=== PATIENT | male | born 1955 | race Caucasian/White ===

== ENCOUNTER → 2017-01-22 | Outpatient (CLI) | payer OTHER ==
[~2017-01-22] MED LIST: ALBU83IN INH; AUGM875T28 PO; CIAL5TAB PO; NUTRIFERON PO; OMEP40CA2 PO; PROZ40CA PO; SAW450CA2 PO; SPIR1CAP INH; TESS100C PO; VITA100067 PO; tumeric PO; uroxatral PO
--- NOTE | 2017-01-22 13:13 | REP ---
Clinical: COPD with acute exacerbation. Technique: PA and lateral. Comparison: 07/14/2014. Findings: Mediastinum and cardiac silhouette are within normal limits. Lung gonzalez demonstrate chronic changes related to COPD along with superimposed bibasilar atelectasis and small pleural reactions (left greater than right). Impression: COPD with superimposed acute bibasilar atelectasis and small pleural reactions (left greater than right). Signed by Ghassan Monroy MD 01/22/2017 01:05 P
== END ==
LOC: M WUC 12:47
PROVIDERS: ATTEND Physician Assistant
DX: J44.1 Chronic obstructive pulmonary disease with (acute) exacerbation (principal)

== ENCOUNTER → 2017-02-20 | Outpatient (REF) | payer OTHER | LOC: M LABDRAWC 12:08 | PROVIDERS: ATTEND Urology | DX: R97.20 Elevated prostate specific antigen [PSA] (principal) ==

== ENCOUNTER → 2017-07-11 | Outpatient (CLI) | payer OTHER | LOC: M RAD 12:52 | DX: J44.9 Chronic obstructive pulmonary disease, unspecified (principal) ==

== ENCOUNTER 2017-08-29 15:02 | Emergency (ER) | payer OTHER ==
[2017-08-29 16:03] LABS: BASO # 0.1 10^3/uL (0.0-0.2); BASO % 0.8 % (0.0-1.0); EOS # 0.2 10^3/uL (0.0-0.50); EOS % 2.3 % (0.0-3.0); HEMATOCRIT 43.7 % (42.0-52.0); HEMOGLOBIN 15.1 g/dl (13.5-17.5); IMMATURE GRANULOCYTE % 0.3 % (0-3.0); LYMPH # 1.6 10^3/uL (1.5-4.5); LYMPH % 21.9 % (24.0-44.0); MEAN CORPUSCULAR HEMOGLOBIN 30.2 pg (27.0-33.0); MEAN CORPUSCULAR HGB CONC 34.6 g/dl (32.0-36.5); MEAN CORPUSCULAR VOLUME 87.4 fl (80.0-96.0); MONO # 0.6 10^3/uL (0.0-0.8); MONO % 8.3 % (0.0-5.0); NEUTROPHILS # 4.9 10^3/uL (1.8-7.7); NEUTROPHILS % 66.4 % (36.0-66.0); PLATELET COUNT, AUTOMATED 218 10^3/uL (150-450); RED CELL DISTRIBUTION WIDTH 12.7 % (11.5-14.5); WHITE BLOOD COUNT 7.3 10^3/uL (4.0-10.0)
[2017-08-29 16:17] LABS: ALKALINE PHOSPHATASE 74 U/L (45-117); ALT/SGPT 26 U/L (12-78); ANION GAP 9 MEQ/L (8-16); AST/SGOT 26 U/L (7-37); BLOOD UREA NITROGEN 17 MG/DL (7-18); CALCIUM LEVEL 8.4 MG/DL (8.8-10.2); CARBON DIOXIDE LEVEL 25 MEQ/L (21-32); CHLORIDE LEVEL 109 MEQ/L (98-107); CPK CREATINE PHOSPHOKINASE 176 U/L (39-308); CREATININE FOR GFR 1.16 MG/DL (0.70-1.30); GLOMERULAR FILTRATION RATE > 60.0 (>49); GLUCOSE, FASTING 90 MG/DL (70-100); SODIUM LEVEL 143 MEQ/L (136-145)
[2017-08-29 16:18] LABS: ALBUMIN 3.4 GM/DL (3.2-5.2); BILIRUBIN,DIRECT < 0.1 MG/DL (0.0-0.2); BILIRUBIN,TOTAL 0.3 MG/DL (0.2-1.0); TOTAL PROTEIN 6.5 GM/DL (6.4-8.2); TROPONIN I < 0.02 NG/ML (< 0.10)
[2017-08-29 16:23] LABS: CK-MB VALUE MASS 2.4 NG/ML (<3.6); MB/CK RELATIVE INDEX 1.36 (< OR =4)
[2017-08-29] MEDS: VERAPAMIL HCL 5 MG/2 ML VIAL IV (16:47)
[2017-08-29] MEDS: APIXABAN 5 MG TAB (ELIQUIS) PO (19:51)
== END 2017-08-29 20:00 | disposition home or self-care (01) ==
LOC: M ED 15:02
DX: I48.92 Unspecified atrial flutter (principal); R94.31 Abnormal electrocardiogram [ECG] [EKG]; J44.9 Chronic obstructive pulmonary disease, unspecified; N40.0 Benign prostatic hyperplasia without lower urinary tract symptoms; Z98.890 Other specified postprocedural states; Z87.891 Personal history of nicotine dependence
CPT/HCPCS: 71045

== ENCOUNTER → 2018-02-21 | Outpatient (REF) | payer OTHER | LOC: M LABDRAWC 17:42 | DX: R97.20 Elevated prostate specific antigen [PSA] (principal) | CPT/HCPCS: 84153 ==

== ENCOUNTER → 2018-03-19 | Outpatient (REF) | payer OTHER ==
[2018-03-22 00:07] LABS: PSA % FREE 13.6 % (.); PSA TOTAL 6.6 ng/mL (0.0-4.0)
== END ==
LOC: M LABDRAWC 16:44
DX: Z12.5 Encounter for screening for malignant neoplasm of prostate (principal)

== ENCOUNTER 2018-06-03 10:35 | Day surgery (SDC) | payer OTHER ==
[~2018-06-03] VITALS: Ht 177.8 cm; Wt 86.2 kg
[~2018-06-03 10:35] MED LIST changes: +ASHW500C PO; +COLA100C5 PO; +DILT120C77 PO; +DILT60TA PO; +ELIQ5TAB PO; +FEXO180T58 PO; +FINA5TAB2 PO; +NASA1SPR; +OMEGCAP9 PO; +PROAAER10 INH; +SYMB16INH INH; +ZOLO50TA PO
[2018-06-03] MEDS ORDERED: NS 1,000 ML IV ONE (11:00)
[2018-06-03] MEDS ORDERED: PROPOFOL 200 MG/20 ML VIAL As Ordered ONE ×2 (12:11→13:16)
[2018-06-03] MEDS ORDERED: LIDOCAINE 2% INJ 100 MG/5 ML SDV (FOR ANES.) As Ordered ONE (12:12)
[2018-06-03] MEDS ORDERED: fentaNYL 100 MCG/2 ML INJECTION (J3010) As Ordered ONE (12:18)
--- NOTE | 2018-06-03 13:11 | ROOR ---
Patient Name: Ishan Deutsch Procedure Date: 06/03/2018 12:56 PM Date of : 1955 Age: 63 Room: [facility] Gender: Male Note Status: Finalized Procedure: Upper Endoscopy + Biopsies Indications: Heartburn, Exclusion of Lyman's esophagus Providers: Davis Cortez MD Referring MD: Lynda Okeefe DO Requesting Provider: Medicines: Monitored Anesthesia Care Complications: No immediate complications. Procedure: Pre-Anesthesia Assessment: - The heart rate, respiratory rate, oxygen saturations, blood pressure, adequacy of pulmonary ventilation, and response to care were monitored throughout the procedure. The Endoscope was introduced through the mouth, and advanced to the second part of duodenum. The upper GI endoscopy was accomplished without difficulty. The patient tolerated the procedure well. Findings: The Z-line was irregular and was found 40 cm from the incisors. Multiple biopsies were obtained with cold forceps for evaluation to rule out Lyman's Esophagus randomly at the gastroesophageal junction. A small hiatal hernia was present. Localized mild inflammation characterized by congestion (edema), erosions and erythema was found in the gastric antrum. Biopsies were taken with a cold forceps for Helicobacter pylori testing. The exam of the duodenum was otherwise normal. Impression: - Z-line irregular, 40 cm from the incisors. - Small hiatal hernia. - Mucosal changes suspicious for gastritis. Biopsied. - Multiple biopsies were obtained at the gastroesophageal junction. - The examination was otherwise normal. Recommendation: - Patient has a contact number available for emergencies. The signs and symptoms of potential delayed complications were discussed with the patient. Return to normal activities tomorrow. Written discharge instructions were provided to the patient. - High fiber diet. - Discharge patient to home. - Continue present medications. - Await pathology results. - Telephone GI clinic for pathology results in 1 week. - Return to referring physician. - The findings and recommendations were discussed with the patient's family. Davis Cortez MD Davis Crotez MD 06/03/2018 1:11:10 PM This report has been signed electronically. Number of Addenda: 0 Note Initiated On: 06/03/2018 12:56 PM Estimated Blood Loss: Estimated blood loss: none.
--- NOTE | 2018-06-03 13:46 | ROOR ---
Patient Name: Ishan Deutsch Procedure Date: 06/03/2018 12:57 PM Date of : 1955 Age: 63 Room: [facility] Gender: Male Note Status: Finalized Procedure: Total Colonoscopy to Cecum + Cold Snare Polypectomy + Hemoclips Indications: High risk colon cancer surveillance: Personal history of colonic polyps, High risk colon cancer surveillance: Personal history of adenoma with villous component, Last colonoscopy: 2015 Providers: Davis Cortez MD Referring MD: Lynda Okeefe DO Requesting Provider: Medicines: Monitored Anesthesia Care Complications: No immediate complications. Procedure: Pre-Anesthesia Assessment: - The heart rate, respiratory rate, oxygen saturations, blood pressure, adequacy of pulmonary ventilation, and response to care were monitored throughout the procedure. The Colonoscope was introduced through the anus and advanced to the cecum, identified by appendiceal orifice and ileocecal valve. The colonoscopy was performed without difficulty. The patient tolerated the procedure well. The quality of the bowel preparation was excellent. Findings: The perianal and digital rectal examinations were normal. Non-bleeding external internal hemorrhoids were found during retroflexion. The hemorrhoids were small and Grade I (internal hemorrhoids that do not prolapse). A small polyp was found in the transverse colon. The polyp was sessile. The polyp was removed with a cold snare. Resection and retrieval were complete. A large polyp was found in the mid ascending colon. The polyp was sessile. The polyp was removed with a cold snare. Resection and retrieval were complete. To prevent bleeding after the polypectomy, two hemostatic clips were successfully placed (MR conditional). There was no bleeding at the end of the procedure. A large polyp was found in the cecum. The polyp was sessile. The polyp was removed with a cold snare. Resection and retrieval were complete. To prevent bleeding after the polypectomy, three hemostatic clips were successfully placed (MR conditional). There was no bleeding at the end of the procedure. The exam was otherwise without abnormality on direct and retroflexion views. Impression: - Non-bleeding external internal hemorrhoids. - One small polyp in the transverse colon, removed with a cold snare. Resected and retrieved. - One large polyp in the mid ascending colon, removed with a cold snare. Resected and retrieved. Clips (MR conditional) were placed. - One large polyp in the cecum, removed with a cold snare. Resected and retrieved. Clips (MR conditional) were placed. - The examination was otherwise normal on direct and retroflexion views. - The exam was otherwise normal to the cecum. Recommendation: - Patient has a contact number available for emergencies. The signs and symptoms of potential delayed complications were discussed with the patient. Return to normal activities tomorrow. Written discharge instructions were provided to the patient. - High fiber diet. - Discharge patient to home. - Continue present medications. - Resume Eliquis (apixaban) at prior dose tomorrow. - Await pathology results. - Telephone GI clinic for pathology results in 1 week. - Repeat colonoscopy for surveillance based on pathology results. - Return to referring physician. - Check Portal Online for Path Results.([email or web address]) - The findings and recommendations were discussed with the patient's family. Davis Cortez MD Davis Cortez MD 06/03/2018 1:46:42 PM This report has been signed electronically. Number of Addenda: 0 Note Initiated On: 06/03/2018 12:57 PM Estimated Blood Loss: Estimated blood loss: none.
[2018-06-03 14:05] VITALS: BP 182/83
== END 2018-06-03 14:16 | disposition home or self-care (01) ==
LOC: M OPP 10:35
PROVIDERS: ATTEND Internal Medicine Gastroenterology
DX: Z12.11 Encounter for screening for malignant neoplasm of colon (principal); Z86.010 Personal history of colon polyps; K64.0 First degree hemorrhoids; K64.4 Residual hemorrhoidal skin tags; D12.3 Benign neoplasm of transverse colon; D12.2 Benign neoplasm of ascending colon; D12.0 Benign neoplasm of cecum; K22.8 Other specified diseases of esophagus; K44.9 Diaphragmatic hernia without obstruction or gangrene; K31.89 Other diseases of stomach and duodenum; R12 Heartburn; I51.9 Heart disease, unspecified; J44.9 Chronic obstructive pulmonary disease, unspecified; Z79.899 Other long term (current) drug therapy; Z87.891 Personal history of nicotine dependence
CPT/HCPCS: 43239; 45385; 88305; J3010

== ENCOUNTER → 2018-09-18 | Outpatient (REF) | payer OTHER | LOC: M LABDRAWC 16:24 | PROVIDERS: ATTEND Urology | DX: R97.20 Elevated prostate specific antigen [PSA] (principal) ==

== ENCOUNTER → 2018-11-08 | Outpatient (REF) | payer OTHER | LOC: M LAB REF 16:49 | PROVIDERS: ATTEND Internal Medicine | DX: J44.9 Chronic obstructive pulmonary disease, unspecified (principal) ==

== ENCOUNTER → 2019-03-03 | Outpatient (CLI) | payer OTHER ==
[~2019-03-03] MED LIST changes: -OMEP40CA2 PO; +OMEP40CA97 PO
--- NOTE | 2019-03-03 20:10 | REP ---
Clinical: Lung screening. History smoking. Comparison: 07/11/2017 Technique: Axial low-dose noncontrast images from the thoracic inlet to the upper abdomen using lung screening technique. Findings: The lung gonzalez demonstrate mild scattered chronic-appearing fibroatelectatic changes. No consolidation, or mass lesion is appreciated. A 9 mm nodule at the right lung base (image 80) is identified but appears relatively similar/stable compared to 2015. No pleural effusion/reaction or pneumothorax. Tracheobronchial tree is patent. Mediastinum demonstrates mild atherosclerotic changes of the coronary arteries without cardiomegaly. Impression: Lung-RADS category II. 9 mm nodule in the deep right lung base essentially inseparable from the diaphragm is likely stable as compared to 2015. Consider short-term 3-month follow-up to confirm chronicity and stability. Electronically Signed by Ghassan Monroy MD 03/03/2019 08:02 P
== END ==
LOC: M RAD 12:55
PROVIDERS: ATTEND Internal Medicine
DX: R91.1 Solitary pulmonary nodule (principal); F17.221 Nicotine dependence, chewing tobacco, in remission

== ENCOUNTER → 2019-03-24 | Outpatient (REF) | payer OTHER | LOC: M LAB REF 18:51 | PROVIDERS: ATTEND Urology | DX: R97.20 Elevated prostate specific antigen [PSA] (principal) ==

== ENCOUNTER → 2019-05-08 | Outpatient (CLI) | payer OTHER ==
--- NOTE | 2019-05-08 11:03 | REP ---
Clinical: COPD . Comparison: 11/08/2018 . Technique: PA and lateral. Findings: The mediastinum and cardiac silhouette are normal. The lung gonzalez demonstrate chronic stable changes without acute consolidation, effusion, or pneumothorax. The skeletal structures are intact and normal. Impression: 1. No acute cardiopulmonary process. Electronically Signed by Ghassan Monroy MD 05/08/2019 10:56 A
== END ==
LOC: M WUC 10:29
PROVIDERS: ATTEND Nurse Practitioner Family
DX: J44.1 Chronic obstructive pulmonary disease with (acute) exacerbation (principal)

== ENCOUNTER → 2019-05-13 | Outpatient (CLI) | payer OTHER ==
--- NOTE | 2019-05-13 12:40 | REP ---
Clinical: Cough and fever. Technique: PA and lateral. Comparison: 05/08/2019. Findings: Mediastinum and cardiac silhouette are within normal limits and stable. Lung gonzalez demonstrate chronic interstitial changes and emphysematous disease. Trace left basilar atelectasis. No focal consolidation. No effusion. No pneumothorax. Skeletal structures demonstrate osteopenia and degenerative changes. Impression: Chronic stable changes. Subtle left basilar atelectasis cannot be excluded. Electronically Signed by Ghassan Monroy MD 05/13/2019 12:31 P
== END ==
LOC: M WUC 11:52
PROVIDERS: ATTEND Internal Medicine
DX: J18.9 Pneumonia, unspecified organism (principal)

== ENCOUNTER → 2019-06-27 | Outpatient (CLI) | payer OTHER ==
--- NOTE | 2019-06-27 13:26 | REP ---
Clinical: Lung screening. History smoking. Solitary pulmonary nodule. Comparison: 03/03/2019 Technique: Axial low-dose noncontrast images from the thoracic inlet to the upper abdomen using lung screening technique. Findings: The lung gonzalez are well-aerated. Emphysematous changes and scattered scarring remain relatively stable through 2017 and 2014. 9 mm pulmonary nodule in the right lower lobe base essentially inseparable from the diaphragmatic surface remains stable and requires no further investigation. No consolidation, significant nodule or mass lesion is appreciated. No pleural effusion/reaction or pneumothorax. Tracheobronchial tree is patent. Mediastinum demonstrates mild atherosclerotic changes of the coronary arteries without cardiomegaly. Impression: 1. Lung-RADS category II. Findings are stable when compared through 07/03/2017 and 08/12/2014. 2. Management for high-risk patient is include annual low-dose surveillance. Electronically Signed by Ghassan Monroy MD 06/27/2019 01:17 P
== END ==
LOC: M RAD 13:04
PROVIDERS: ATTEND Internal Medicine
DX: R91.1 Solitary pulmonary nodule (principal)

== ENCOUNTER → 2019-10-22 | Outpatient (REF) | payer OTHER | LOC: M LABDRAWC 15:47 | PROVIDERS: ATTEND Urology | DX: R97.20 Elevated prostate specific antigen [PSA] (principal) ==

== ENCOUNTER → 2020-03-11 | Outpatient (REF) | payer OTHER ==
[2020-03-11 16:11] LABS: BASO % 0.2 % (0.0-1.0); HEMATOCRIT 48.1 % (42.0-52.0); HEMOGLOBIN 16.1 g/dl (13.5-17.5); LYMPH # 2.3 10^3/uL (1.5-5.0); MEAN CORPUSCULAR HEMOGLOBIN 32.9 pg (27.0-33.0); MEAN CORPUSCULAR HGB CONC 33.5 g/dl (32.0-36.5); MEAN CORPUSCULAR VOLUME 98.2 fl (80.0-96.0); MONO # 0.9 10^3/uL (0.0-0.8); MONO % 8.5 % (0.0-5.0); NEUTROPHILS # 6.9 10^3/uL (1.5-8.5); PLATELET COUNT, AUTOMATED 227 10^3/uL (150-450); WHITE BLOOD COUNT 10.2 10^3/uL (4.0-10.0)
== END ==
LOC: M LABDRAWC 15:39
PROVIDERS: ATTEND Internal Medicine Pulmonary Disease
DX: J45.51 Severe persistent asthma with (acute) exacerbation (principal)

== ENCOUNTER → 2020-03-19 | Outpatient (REF) | payer OTHER ==
[2020-03-19 17:38] LABS: ALBUMIN 3.3 GM/DL (3.2-5.2); BILIRUBIN,TOTAL 0.5 MG/DL (0.2-1.0); CALCIUM LEVEL 9.1 MG/DL (8.8-10.2); CHOLESTEROL RISK RATIO 3.343 (<5); CREATININE FOR GFR 1.36 MG/DL (0.70-1.30); GLOMERULAR FILTRATION RATE 56.3 (>49); POTASSIUM SERUM 4.3 MEQ/L (3.5-5.1); TOTAL PROTEIN 6.3 GM/DL (6.4-8.2)
== END ==
LOC: M LABDRAWC 16:04
PROVIDERS: ATTEND Physician Assistant
DX: I48.92 Unspecified atrial flutter (principal)

== ENCOUNTER → 2020-10-25 | Outpatient (CLI) | payer OTHER ==
--- NOTE | 2020-10-26 08:52 | REP ---
INDICATION: F17.211 NICOTINE DEPEND COMPARISON: 06/27/2019, 03/03/2019 TECHNIQUE: Axial noncontrast images from the thoracic inlet to the upper abdomen using low-dose lung screening technique (LDCT). FINDINGS: Lung gonzalez are well aerated and demonstrate COPD/emphysematous changes with minimal primarily infrahilar bronchiectasis and mild bibasilar fibroatelectatic changes. No acute consolidation, significant nodule, or mass. No pleural effusion. No pneumothorax. Tracheobronchial tree is patent. No obvious adenopathy. IMPRESSION: COPD/emphysematous changes and chronic stable fibroatelectatic changes Lung-RADS category 1. Management recommendations include annual low-dose CT surveillance. <Electronically signed by Ghassan Monroy > 10/26/20 [id number]
== END ==
LOC: M RAD 13:22
PROVIDERS: ATTEND Internal Medicine
DX: F17.211 Nicotine dependence, cigarettes, in remission (principal)

== ENCOUNTER 2020-12-31 18:42 | Inpatient (IN) | payer OTHER ==
[~2020-12-31] VITALS: Ht 180.3 cm; Wt 93.8 kg
[~2020-12-31 18:42] MED LIST changes: +OMEP40CA4 PO; -OMEP40CA97 PO
[2020-12-31] MEDS ORDERED: MORPHINE 2 MG/ML 1ML VIAL (J2270) IV ONE ×2 (20:00→21:20)
[2020-12-31 20:29] LABS: BASO # 0.1 10^3/uL (0.0-0.2); BASO % 0.5 % (0.0-1.0); EOS % 0.4 % (0.0-3.0); HEMATOCRIT 44.6 % (42.0-52.0); HEMOGLOBIN 15.3 g/dl (13.5-17.5); LYMPH # 1.1 10^3/uL (1.5-5.0); LYMPH % 11.4 % (24.0-44.0); MEAN CORPUSCULAR HEMOGLOBIN 33.8 pg (27.0-33.0); MEAN CORPUSCULAR HGB CONC 34.3 g/dl (32.0-36.5); MEAN CORPUSCULAR VOLUME 98.5 fl (80.0-96.0); MONO # 0.6 10^3/uL (0.0-0.8); MONO % 6.3 % (2.0-8.0); NEUTROPHILS # 7.8 10^3/uL (1.5-8.5); NEUTROPHILS % 81.1 % (36.0-66.0); PLATELET COUNT, AUTOMATED 218 10^3/uL (150-450); RED BLOOD COUNT 4.53 10^6/uL (4.30-6.10); WHITE BLOOD COUNT 9.7 10^3/uL (4.0-10.0)
[2020-12-31 20:39] LABS: INR 0.95; PROTHROMBIN TIME 13.1 SECONDS (12.7-14.5)
[2020-12-31 20:40] LABS: PARTIAL THROMBOPLASTIN TIME 25.2 SECONDS (25.9-37.0)
[2020-12-31 20:59] LABS: BLOOD UREA NITROGEN 7 MG/DL (7-18); CALCIUM LEVEL 8.3 MG/DL (8.8-10.2); CARBON DIOXIDE LEVEL 27 MEQ/L (21-32); CHLORIDE LEVEL 105 MEQ/L (98-107); CK-MB VALUE MASS < 1.0 NG/ML (<3.6); CPK CREATINE PHOSPHOKINASE 39 U/L (39-308); CREATININE FOR GFR 1.12 MG/DL (0.70-1.30); ETHYL ALCOHOL (ETHANOL) 0.059 % (0.000-0.010); GLOMERULAR FILTRATION RATE > 60.0 (>49); GLUCOSE, FASTING 124 MG/DL (70-100); MB/CK RELATIVE INDEX 2.56 (< OR =4); POTASSIUM SERUM 3.8 MEQ/L (3.5-5.1); SODIUM LEVEL 140 MEQ/L (136-145); TROPONIN I < 0.02 NG/ML (< 0.10)
[2020-12-31] MEDS: THIAMINE 100 MG TAB PO SCH (21:00)
--- NOTE | 2020-12-31 21:13 | REPVR ---
PROCEDURE INFORMATION: Exam: XR Right Femur Exam date and time: 12/31/2020 8:53 PM Age: 65 years old Clinical indication: Other: Fall; Additional info: Fall injury; Right hip/upper leg pain TECHNIQUE: Imaging protocol: XR Right femur. Views: 2 views. COMPARISON: No relevant prior studies available. FINDINGS: Bones/joints: Acute inter trochanteric fracture. Otherwise unremarkable. Soft tissues: Unremarkable. Vasculature: Atherosclerotic changes in the femoral artery. IMPRESSION: Acute inter trochanteric fracture. Electronically signed by: Derrek Quesada On 12/31/2020 21:12:51 PM
--- NOTE | 2020-12-31 21:14 | REPVR ---
PROCEDURE INFORMATION: Exam: XR Right Hip Exam date and time: 12/31/2020 8:53 PM Age: 65 years old Clinical indication: Other: Fall; Additional info: Fall injury; Right hip/upper leg pain TECHNIQUE: Imaging protocol: XR Right hip. Views: 2 or 3 views hip with pelvis when performed. COMPARISON: No relevant prior studies available. FINDINGS: Bones/joints: Acute inter trochanteric fracture on the right. Otherwise unremarkable. Soft tissues: Unremarkable. IMPRESSION: Acute inter trochanteric fracture on the right. Electronically signed by: Derrek Quesada On 12/31/2020 21:14:02 PM
--- NOTE | 2020-12-31 21:15 | REPVR ---
PROCEDURE INFORMATION: Exam: XR Chest Exam date and time: 12/31/2020 8:53 PM Age: 65 years old Clinical indication: Other: Fall; Additional info: Syncope/near-syncope TECHNIQUE: Imaging protocol: XR of the chest. Views: 1 view. COMPARISON: CR CHEST 2 VIEW 05/13/2019 12:28 PM FINDINGS: Lungs: Hyperlucency demonstrated in both lungs suggesting underlying emphysematous changes. No segmental or lobar infiltrates. Pleural spaces: Unremarkable. No pleural effusion. No pneumothorax. Heart/Mediastinum: Unremarkable. No cardiomegaly. Bones/joints: Unremarkable. IMPRESSION: No acute findings. Electronically signed by: Derrek Quesada On 12/31/2020 21:14:34 PM
[2020-12-31] MEDS ORDERED: ELIQ5TAB PO (22:19)
[2020-12-31] MEDS ORDERED: ASHW300C PO (22:19)
[2020-12-31] MEDS ORDERED: SERT25TA21 PO (22:19)
[2020-12-31] MEDS ORDERED: SAW1CAPS2 PO (22:19)
[2020-12-31] MEDS ORDERED: CALC1TAB91 PO (22:19)
[2020-12-31] MEDS ORDERED: LEVA0.636 NEB (22:24)
[2020-12-31] MEDS ORDERED: SPIR-10 PO (22:24)
[2020-12-31] MEDS ORDERED: FURO40TA2 PO (22:24)
[2020-12-31] MEDS ORDERED: APPL300T4 PO (22:24)
[2020-12-31] MEDS ORDERED: METO1TAB87 PO (22:24)
[2020-12-31] MEDS ORDERED: MONT10TA10 PO (22:24)
[2020-12-31] MEDS ORDERED: TREL1AER INH (22:24)
[2020-12-31] MEDS ORDERED: DOK100TA2 PO (22:24)
[2020-12-31] MEDS ORDERED: AZIT-12 PO (22:24)
[2020-12-31] MEDS ORDERED: LEVAINH INH (22:24)
[2020-12-31] MEDS ORDERED: ALFU10TA3 PO (22:24)
[2020-12-31] MEDS ORDERED: HOME MED LIST COMPLETE! XX SCH (22:30)
[2020-12-31] MEDS ORDERED: LORazepam 2 MG TAB PO PRN (22:40)
[2020-12-31] MEDS ORDERED: HYDROMORPHONE HCL 0.5 MG/ 0.5 ML SYRINGE (J1170 PER 1) IV PRN (22:40)
[2020-12-31] MEDS ORDERED: MAALOX 30 ML SUSP *UDC PO PRN (23:00)
[2020-12-31] MEDS ORDERED: MOM 30ML SUSPENSION UDC PO PRN (23:00)
[2020-12-31] MEDS ORDERED: ACETAMINOPHEN TAB 650MG DOSE (2X325MG) PO PRN (23:00)
[2020-12-31 23:01] LABS: RSV AMPLIFICATION NEGATIVE (NEGATIVE)
[2020-12-31 23:07] LABS: NT-PRO BNP 748 PG/ML (<125)
--- NOTE | 2020-12-31 23:32 | HPEPDOC ---
[facility] Medical History & Physical Date of Admission Dec 31, 2020 Date of Service: Dec 31, 2020 Primary Care Physician: RAQUEL SOLIS DO Attending Physician: MITESH MEDRANO MD History and Physical TIME OF SERVICE: 1150pm CHIEF COMPLAINT: hip pain HISTORY OF PRESENT ILLNESS: a 65 yr old M has been having dizzy spells off and on for a especially when he turns to the right. He denies having associated palpitations, blurry vision, chest pain, or dyspnea. Today he had another dizzy spell that resulted in falling onto his right hip; as a result of the fall he developed hip pain, came to the ER and was diagnosed w a right intertrochanteric fracture. REVIEW OF SYSTEMS: 10-point review of systems negative except as listed in HPI PAST MEDICAL/ SURGICAL HISTORY: Longstanding persistent A Fib, COPD, GERD, inguinal hernia repair, hemorrhoidectomy, resection of multiple colonic polyps SOCIAL HISTORY: he quit smoking and drinks 1.75 L of wine daily FAMILY HISTORY: CAD, DM & HTN ALLERGIES: Please see below. HOME MEDICATIONS: Please see below. PHYSICAL EXAMINATION: Vital Signs Date Time Temp Pulse Resp B/P (MAP) Pulse Ox O2 Delivery O2 Flow Rate FiO2 12/31/20 18:55 117/67 (84) 12/31/20 18:57 62 98 12/31/20 19:00 97.7 20 Nasal Cannula 2.0 GENERAL APPEARANCE: well-nourished and developed/ NAD HEENT: EOMI / MMM&P CARDIOVASCULAR: RRR/NMRG LUNGS: CTAB on RA ABDOMEN: contour obese/ soft & NT w palpation MUSCULOSKELETAL: NCAT NEUROLOGICAL: CN 2-12 grossly intact / speech not dysarthric PSYCHIATRIC: A&O / able to understand and follow simple commands LABORATORY DATA: IMAGING: Chest xray IMPRESSION: No acute findings. Femur xray IMPRESSION: Acute inter trochanteric fracture. Hip/Pelvis xray IMPRESSION: Acute inter trochanteric fracture on the right. MICROBIOLOGY: Respiratory panel is neg ASSESSMENT: is a 65 yr old w Longstanding persistent A Fib, COPD, BPH & GERD who is admitted for management of a right intertrochanteric fx. PLAN: 1 Right Inter-trochanteric fracture His RCRI score is 0, therefore he doesnt need additional testing prior to proceeding with surgery. Plan: admit to medical floor / IVF/ dilaudid/ hold Xarelto (because his CHADVASC Score is less than 5 there is no need to bridge with a heparin drip prior to surgery) / f/u w Dr. Menjivar for surgery on Sunday or Sunday 2 Osteoporosis By definition because he has a hip fracture he has osteoporosis. Plan: f/u Ca and Vitamin D / start calcium w vitamin D supplement / he can f/u with his PCP for DEXA Scan & BMP to determine CrCl prior to selecting medication for osteoporosis & to discuss non-pharmacological therapies for os teoporosis (ie resistance and core training, smoking cessation, alcohol moderation and fall prevention strategies) 3 Presyncope R/O CVA and aortic stenosis Plan: telemetry / f/u CT head, carotid US & Echo 4 Alcohol Abuse Plan: Ativan, thiamine, MVI & folic acid per CIID protocol 5 Longstanding persistent A Fib Plan: diltiazem & metoprolol 6 COPD Plan: chronic azithromycin, levalbuterol, montelukast 7 resistant HTN ? Plan: lasix, diltiazem & metoprolol, spironolactone 8 BPH Plan: tamsulosin, finasteride 9 GERD Plan: PPI 10 Class 1 obesity complicates care Plan: f/u A1C / the patient can f/u w his or her PCP for sleep apnea screening, diet clerk consult, to discuss staring Saxenda, which is indicated in patients with a BMI >27 with co-existing DM, HTN or dyslipidemia to help with weight control as an adjunct to exercise DVT px w Heparin which can be held at midnight prior to surgery (Janie Prediction Score to determine the in-patient risk of VTE & need for anticoagulation is 6. Individuals with a Janie Score <4 are low risk of VTE and thromboprophylaxis should be considered on a [id number] basis while individuals with a Janie score >4 are high risk for VTE and will likely benefit from thromboprophylaxis unless the patient has major contraindication such as major bleeding or thrombocytopenia). Dispo: home after at least 2 midnights stay Home Medications Scheduled Alfuzosin HCl (Alfuzosin HCl ER) 10 Mg Tab.er.24h, 10 MG PO DAILY Apixaban (Eliquis) 5 Mg Tablet, 5 MG PO BID Ashwagandha Root Extract (Ashwagandha Root Extract) 300 Mg Capsule, 300 MG PO DAILY Azithromycin (Azithromycin) 250 Mg Tablet, 250 MG PO DAILY Calcium Carbonate/Vitamin D3 (Calcium 500 mg-Vit D3 600 Unit) 1 Each Tablet, 1 EACH PO DAILY Cider Vinegar (Apple Cider Vinegar) 300 Mg Tablet, 300 MG PO DAILY Diltiazem HCl (Diltiazem 24Hr ER) 120 Mg Cap, 360 MG PO DAILY Docusate Sodium (Dok) 100 Mg Tablet, 100 MG PO DAILY Fexofenadine HCl (Fexofenadine HCl) 180 Mg Tab, 180 MG PO DAILY Finasteride (Finasteride) 5 Mg Tab, 5 MG PO DAILY Fluticasone/Umeclidin/Vilanter (Trelegy Ellipta 100-62.5-25) 1 Each Blst.w.dev, 1 PUFF INH QPM Furosemide (Furosemide) 40 Mg Tablet, 40 MG PO DAILY Levalbuterol HCl (Levalbuterol HCl) 0.63 Mg/3 Ml Vial.neb, 1 VIAL NEB QID Metoprolol Tartrate (Metoprolol Tartrate) 25 Mg Tablet, 25 MG PO DAILY Montelukast Sodium (Montelukast Sodium) 10 Mg Tablet, 10 MG PO QPM Omeprazole (Omeprazole) 40 Mg Cap, 40 MG PO DAILY Saw Cobalt Fruit/Zinc Picoli (Saw Cobalt 450 mg Capsule) 1 Each Capsule, 1 EACH PO DAILY Sertraline HCl (Sertraline HCl) 25 Mg Tablet, 25 MG PO DAILY takes with 50mg to equal 75mg Sertraline Hcl (Zoloft) 50 Mg Tab, 50 MG PO DAILY takes with 25mg to equal 75mg Spironolactone (Spironolactone) 25 Mg Tablet, 25 MG PO DAILY Tadalafil (Cialis) 5 Mg Tab, 5 MG PO DAILY Triamcinolone Acetonide (Nasacort) 55 Mcg/Act Spr, 2 SPRAYS NA QHS [tumeric] , 1 TAB PO DAILY Scheduled PRN Levalbuterol Hydrochloride (Xopenex Hfa) 15 Gm Hfa.aer.ad, 1 PUFF INH ASDIRECTED PRN for SHORTNESS OF BREATH Allergies Coded Allergies: No Known Allergies (Verified Allergy, Unknown, 12/31/20) A-FIB/CHADSVASC A-FIB History Current/History of A-Fib/PAF?: Yes Current PO Anticoag Therapy: No Treatment Treatment ordered: Holding Other Reason Anticoagulant not given: Recent/upcomin procedure MITESH MEDRANO MD Dec 31, 2020 23:32
[2020-12-31] MEDS: HYDROMORPHONE HCL 0.5 MG/ 0.5 ML SYRINGE (J1170 PER 1) IV PRN (23:33)
[2021-01-01] VITALS (7 sets, daily range): BP systolic 111–141; BP diastolic 73–95
--- NOTE | 2021-01-01 01:04 | REPVR ---
PROCEDURE INFORMATION: Exam: US Duplex Bilateral Extracranial Arteries Exam date and time: 01/01/2021 12:38 AM Age: 65 years old Clinical indication: Syncope and collapse; Additional info: Presyncope R/O CVA TECHNIQUE: Imaging protocol: Real-time Duplex ultrasound scan of the bilateral carotid and vertebral arteries combining bustillos scale, color Doppler and spectral waveform analysis. Bilateral exam. COMPARISON: LOW DOSE LUNG SCREENING CT 10/25/2020 1:42 PM FINDINGS: Right common carotid artery: Arrhythmia. Atherosclerotic disease. No occlusion or stenosis. Waveforms are normal. Right internal carotid artery: Arrhythmia. Atherosclerotic disease. No occlusion or stenosis. Waveforms are normal. Right ICA/CCA ratio: Within normal limits. Right external carotid artery: No stenosis in the origin. Right vertebral artery: Not visualized. Left common carotid artery: Arrhythmia. Atherosclerotic disease. No occlusion or stenosis. Waveforms are normal. Left internal carotid artery: Arrhythmia. Atherosclerotic disease. No occlusion or stenosis. Waveforms are normal. Left ICA/CCA ratio: Within normal limits. Left external carotid artery: No stenosis in the origin. Left vertebral artery: Not visualized. IMPRESSION: No carotid arterial stenosis. Arrhythmia. REFERENCES: SRU CRITERIA. The degree of internal carotid artery stenosis is based on criteria defined by the Society of Radiologists in Ultrasound (SRU). Normal is no stenosis. Mild is less than 50% stenosis. Moderate is 50-69% stenosis. Severe is greater than 69% stenosis to near occlusion. Near occlusion is a markedly narrowed lumen. Total occlusion is no detectable patent lumen. Electronically signed by: Joe Latif On 01/01/2021 01:03:25 AM
[2021-01-01] MEDS: MONTELUKAST 10 MG TAB PO SCH ×2 (01:08→21:19)
[2021-01-01] MEDS: LEVALBUTEROL 1.25 MG/0.5 ML CONCENTRATE NEB NEB SCH ×5 (02:54→19:08)
[2021-01-01] MEDS: HYDROMORPHONE HCL 0.5 MG/ 0.5 ML SYRINGE (J1170 PER 1) IV PRN ×2 (04:05→13:37)
[2021-01-01 04:42] LABS: HEMATOCRIT 44.7 % (42.0-52.0); HEMOGLOBIN 15.5 g/dl (13.5-17.5); MEAN CORPUSCULAR HGB CONC 34.7 g/dl (32.0-36.5); PLATELET COUNT, AUTOMATED 206 10^3/uL (150-450); RED BLOOD COUNT 4.56 10^6/uL (4.30-6.10); WHITE BLOOD COUNT 10.5 10^3/uL (4.0-10.0)
[2021-01-01 05:25] LABS: INR 0.94
[2021-01-01 05:26] LABS: BLOOD UREA NITROGEN 9 MG/DL (7-18); CALCIUM LEVEL 8.5 MG/DL (8.8-10.2); CARBON DIOXIDE LEVEL 30 MEQ/L (21-32); CHLORIDE LEVEL 106 MEQ/L (98-107); GLOMERULAR FILTRATION RATE > 60.0 (>49); GLUCOSE, FASTING 133 MG/DL (70-100); POTASSIUM SERUM 4.2 MEQ/L (3.5-5.1); SODIUM LEVEL 139 MEQ/L (136-145); TROPONIN I < 0.02 NG/ML (< 0.10)
[2021-01-01] MEDS ORDERED: HEPARIN SOD (PORCINE) 5000UNITS/ML 1ML VIAL/SYRINGE SQ SCH (06:00)
[2021-01-01] MEDS ORDERED: PERCOCET 5MG/325MG TAB PO ONE (08:00)
--- NOTE | 2021-01-01 08:00 | CR.PDOC ---
General Date of Consultation: Jan 01, 2021 Referring Provider: JEAN-CLAUDE EUCEDA MD Consultation 65-year-old male referred from the ER for right-sided hip pain after fall from a standing height. X-rays show right displaced intertrochanteric hip fracture. Unable to weight-bear HPI: Mr.Burrows sosa 65 yr old M has been having dizzy spells off and on for a especially when he turns to the right. He denies having associated palpitations, blurry vision, chest pain, or dyspnea. Today he had another dizzy spell that resulted in falling onto his right hip; as a result of the fall he developed hip pain, came to the ER and was diagnosed w a right inter trochanteric fracture. REVIEW OF SYSTEMS: 10-point review of systems negative except as listed in HPI PAST MEDICAL/ SURGICAL HISTORY: Longstanding persistent A Fib, COPD, GERD, inguinal hernia repair, hemorrhoidectomy, resection of multiple colonic polyps SOCIAL HISTORY: he quit smoking and drinks 1.75 L of wine daily FAMILY HISTORY: CAD, DM & HTN ALLERGIES: Please see below. HOME MEDICATIONS: Please see below. PAST SURGICAL HISTORY: 1. 2. FAMILY HISTORY: Family history of diabetes, coronary artery disease , hypertension Father: Mother: Siblings: Children: Hereditary Diseases: Unexpected deaths due to medical reasons: SOCIAL HISTORY: Marital status and/or living arrangements: Children: Employment: Tobacco use:[Patient states he quit smoking 20 years ago. Daily drinker of wine.] ETOH: Illicit drug use: IV drug use: Other relevant social factors: REVIEW OF SYSTEMS: CONSTITUTIONAL: . HEENT: . CARDIOVASCULAR: [Atrial fibrillation]. RESPIRATORY: . GENITOURINARY: . MUSCULOSKELETAL: . GASTROINTESTINAL: . SKIN: . NEUROLOGICAL: [Dizziness]. PSYCHIATRIC: . ENDOCRINE: . HEMATOLOGIC/LYMPHATIC: . ALLERGIC/IMMUNOLOGIC: . PHYSICAL EXAMINATION: VITAL SIGNS: Please see below. GENERAL APPEARANCE: [Alert and oriented. Mild distress. Laying supine in bed.]. HEENT: . RESPIRATORY: [No respiratory difficulty]. CARDIOVASCULAR: . ABDOMEN: [Patient mildly obese]. EXTREMITIES: [Right lower extremity shortened externally rotated. Pain with p ositive logroll test. Range of motion exam deferred due to hip pain. Right knee no effusion. No pain with palpation on the knee distally. No pain with palpation of the ankle distally. Maintained right ankle range of motion. Grossly vastly intact to light touch. Pulses distally.]. NEUROLOGICAL: . PSYCHIATRIC: . LABORATORY DATA: Please see below. ASSESSMENT/PLAN: 1. [Right displaced intertrochanteric fracture for surgical fixation with a cephalomedullary nail. I explained at length risk and benefits of surgery. Patient consented for right hip cephalomedullary nail. Patient consented for blood transfusion if needed.]. 2. [Patient awaiting medical work-up]. 3. We will book the OR pending medical clearance. 4. Patient will be kept n.p.o. for the upcoming surgery. Vital Signs/I&O Vital Signs Date Time Temp Pulse Resp B/P (MAP) Pulse Ox O2 Delivery O2 Flow Rate FiO2 01/01/21 07:25 98.0 114 18 138/95 (109) 98 Room Air 01/01/21 04:00 2.0 I&O- Last 24 Hours up to 6 AM 01/01/21 05:59 Intake Total 0 ml Balance 0 ml Laboratory Data Labs 24H Laboratory Tests 2 12/31/20 20:07: Immature Granulocyte % (Auto) 0.3, Neutrophils (%) (Auto) 81.1H, Lymphocytes (%) (Auto) 11.4L, Monocytes (%) (Auto) 6.3, Eosinophils (%) (Auto) 0.4, Basophils (%) (Auto) 0.5, Neutrophils # (Auto) 7.8, Lymphocytes # (Auto) 1.1L, Monocytes # (Auto) 0.6, Eosinophils # (Auto) 0.0, Basophils # (Auto) 0.1, Nucleated Red Blood Cells % (auto) 0.0, Prothrombin Time 13.1, Prothromb Time International Ratio 0.95, Activated Partial Thromboplast Time 25.2, Anion Gap 8, Glomerular Filtration Rate > 60.0, Calcium Level 8.3L, Total Creatine Kinase 39, Creatine Kinase MB < 1.0, Creatine Kinase MB Relative Index 2.56, Troponin I < 0.02, UB-Fqe-S-Type Natriuretic Peptide 748H, Thyroid Stimulating Hormone (TSH) 1.390, Ethyl Alcohol Level 0.059H 12/31/20 22:08: Coronavirus (COVID-19)(PCR) NEGATIVE, Influenza Type A (RT-PCR) NEGATIVE, I nfluenza Type B (RT-PCR) NEGATIVE, Respiratory Syncytial Virus (PCR) NEGATIVE 01/01/21 04:17: Nucleated Red Blood Cells % (auto) 0.0, Prothrombin Time 13.0, Prothromb Time International Ratio 0.94, Anion Gap 3L, Glomerular Filtration Rate > 60.0, Calcium Level 8.5L, Troponin I < 0.02 CBC/BMP Laboratory Tests 12/31/20 20:07 01/01/21 04:17 Allergies Coded Allergies: No Known Allergies (Verified Allergy, Unknown, 12/31/20) Home Medications Scheduled Alfuzosin HCl (Alfuzosin HCl ER) 10 Mg Tab.er.24h, 10 MG PO DAILY, (Reported) Apixaban (Eliquis) 5 Mg Tablet, 5 MG PO BID, (Reported) Ashwagandha Root Extract (Ashwagandha Root Extract) 300 Mg Capsule, 300 MG PO DAILY, (Reported) Azithromycin (Azithromycin) 250 Mg Tablet, 250 MG PO DAILY, (Reported) Calcium Carbonate/Vitamin D3 (Calcium 500 mg-Vit D3 600 Unit) 1 Each Tablet, 1 EACH PO DAILY, (Reported) Cider Vinegar (Apple Cider Vinegar) 300 Mg Tablet, 300 MG PO DAILY, (Reported) Diltiazem HCl (Diltiazem 24Hr ER) 120 Mg Cap, 360 MG PO DAILY, (Reported) Docusate Sodium (Dok) 100 Mg Tablet, 100 MG PO DAILY, (Reported) Fexofenadine HCl (Fexofenadine HCl) 180 Mg Tab, 180 MG PO DAILY, (Reported) Finasteride (Finasteride) 5 Mg Tab, 5 MG PO DAILY, (Reported) Fluticasone/Umeclidin/Vilanter (Trelegy Ellipta 100-62.5-25) 1 Each Blst.w.dev, 1 PUFF INH QPM, (Reported) Furosemide (Furosemide) 40 Mg Tablet, 40 MG PO DAILY, (Reported) Levalbuterol HCl (Levalbuterol HCl) 0.63 Mg/3 Ml Vial.neb, 1 VIAL NEB QID, (Reported) Metoprolol Tartrate (Metoprolol Tartrate) 25 Mg Tablet, 25 MG PO DAILY, (Reported) Montelukast Sodium (Montelukast Sodium) 10 Mg Tablet, 10 MG PO QPM, (Reported) Omeprazole (Omeprazole) 40 Mg Cap, 40 MG PO DAILY, (Reported) [place] Fruit/Zinc Picoli (Saw [place] 450 mg Capsule) 1 Each Capsule, 1 EACH PO DAILY, (Reported) Sertraline HCl (Sertraline HCl) 25 Mg Tablet, 25 MG PO DAILY, (Reported) takes with 50mg to equal 75mg Sertraline Hcl (Zoloft) 50 Mg Tab, 50 MG PO DAILY, (Reported) takes with 25mg to equal 75mg Spironolactone (Spironolactone) 25 Mg Tablet, 25 MG PO DAILY, (Reported) Tadalafil (Cialis) 5 Mg Tab, 5 MG PO DAILY, (Reported) Triamcinolone Acetonide (Nasacort) 55 Mcg/Act Spr, 2 SPRAYS NA QHS, (Reported) [tumeric] , 1 TAB PO DAILY, (Reported) Scheduled PRN Levalbuterol Hydrochloride (Xopenex Hfa) 15 Gm Hfa.aer.ad, 1 PUFF INH ASDIRECTED PRN for SHORTNESS OF BREATH, (Reported) JEAN-CLAUDE EUCEDA MD Jan 01, 2021 07:53
--- NOTE | 2021-01-01 08:29 | REP ---
INDICATION: presyncope r/o CVA COMPARISON: None. TECHNIQUE: Axial noncontrast images from the skull base to the thoracic inlet with coronal reformations. This CT examination was performed using the following dose reduction techniques: Automated exposure control, adjustment of mA and/or kv according to the patient's size, and use of iterative reconstruction technique. FINDINGS: Atrophy with periventricular leukomalacia and microvascular ischemic changes are appreciated. The ventricles and sulci are symmetric. Bella-white differentiation is maintained. There is no evidence for acute intracranial hemorrhage, mass/mass effect, pathology or infarction. No extra-axial fluid collection. Calvarium is intact. Paranasal sinuses and mastoid air cells are clear. IMPRESSION: Atrophy and microvascular ischemic changes. No acute intracranial hemorrhage, infarction, or mass/mass effect. <Electronically signed by Ghassan Monroy > 01/01/21 [id number]
[2021-01-01] MEDS ORDERED: SERTRALINE HCL 50 MG TAB PO SCH (09:00)
[2021-01-01] MEDS ORDERED: METOPROLOL TART 25 MG TABLET PO SCH (09:00)
[2021-01-01] MEDS: FINASTERIDE 5 MG TAB PO SCH (09:08)
[2021-01-01] MEDS: FEXOFENADINE 60 MG TAB PO SCH (09:09)
[2021-01-01] MEDS: SERTRALINE HCL 25 MG TABLET PO SCH (09:09)
[2021-01-01] MEDS: SPIRONOLACTONE 25 MG TAB PO SCH (09:09)
[2021-01-01] MEDS: OMEPRAZOLE 20 MG CAP PO SCH (09:10)
[2021-01-01] MEDS: MULTIVITAMINS/MINERALS THERAP 1 TAB PO SCH (09:10)
[2021-01-01] MEDS: FOLIC ACID 1 MG TAB PO SCH (09:10)
[2021-01-01] MEDS: CALCIUM/VITAMIN D 500 MG TAB PO SCH ×3 (09:10→17:43)
[2021-01-01] MEDS: THIAMINE 100 MG TAB PO SCH ×2 (09:11→21:25)
[2021-01-01] MEDS: FUROSEMIDE 40 MG TAB PO SCH (09:11)
[2021-01-01] MEDS: AZITHROMYCIN 250MG TABLET PO SCH (09:11)
[2021-01-01] MEDS: TAMSULOSIN 0.4 MG CAP PO SCH (09:11)
--- NOTE | 2021-01-01 09:56 | IPN ---
PROGRESS NOTE DATE: 01/01/2021 SUBJECTIVE: Patient complains of pain at the right elbow and right hip rated as 7/10 at the bedside. He denies any chest pain, pressure, tightness, shortness of breath, fever or chills overnight. He denies dysuria, urgency or frequency. No issues on telemetry. Patient is off anticoagulation, awaiting surgery. OBJECTIVE: VITAL SIGNS: Temperature 98, pulse 114, respiratory rate 18, blood pressure 138/95, 98% on room air. GENERAL: Awake, alert, oriented times three, answering questions appropriately. No use of respiratory accessory muscles. HEENT: Anicteric. No jaundice. No jugular venous distention (JVD). No thyromegaly. No cervical lymphadenopathy. HEART: S1, S2. Irregularly irregular. Tachycardic. Nondisplaced point of maximum impulse. LUNGS: Clear to auscultation. No wheezing, rales or rhonchi. ABDOMEN: Obese, soft, nontender, nondistended. Positive bowel sounds. EXTREMITIES: Right elbow has no effusion. Full range of motion. He has some abrasions. Right hip tender. Range of motion limited due to severe pain. LABORATORY DATA: Laboratory data and imaging studies have been reviewed. ASSESSMENT: A 65-year-old male with history of chronic atrial fibrillation on anticoagulation, osteoporosis, alcohol abuse, chronic obstructive pulmonary disease (COPD), hypertension, benign prostatic hypertrophy (BPH), reflux and class 1 obesity, admitted due to a fall with a right intertrochanteric fracture. IMPRESSION: 1. Medical optimization. Patient will need 48 hours off anticoagulation for general anesthesia or 72 hours if patient is receiving a spinal anesthesia. Since the patient had a CHADS2 score of less than 5, no need for heparin drip. No prior history of cerebrovascular accident (CVA). Orthopedic surgeon has been consulted. 2. Right intertrochanteric fracture. Off anticoagulation. Hold off on Eliquis for 48 hours if the patient is planned for general anesthesia, 72 hours if spinal anesthesia. Orthopedic surgery is consulted. Pain control with intravenous (IV) Dilaudid as needed, Percocet. 3. Hypertension. On metoprolol. 4. Atrial fibrillation. On Cardizem, metoprolol. Off anticoagulation due to planned surgery in two days. 5. Chronic obstructive pulmonary disease (COPD) with recent acute bronchitis. On azithromycin. 6. Alcohol abuse. On thiamin. Monitor for delirium tremens (DTs). 7. Deep venous thrombosis (DVT) prophylaxis. Compression stockings. MTDD
[2021-01-01] MEDS: METOPROLOL TART 25 MG TABLET PO SCH ×2 (12:23→17:44)
[2021-01-01] MEDS ORDERED: propofoL 200 MG/20 ML VIAL As Ordered ONE (12:29)
[2021-01-01] MEDS ORDERED: dexameTHASONE 4 MG/ML 1ML VIAL (J1100 PER 1MG) As Ordered ONE (12:29)
[2021-01-01] MEDS ORDERED: fentaNYL 100 MCG/2 ML INJECTION (J3010) As Ordered ONE (12:29)
[2021-01-01] MEDS ORDERED: LIDOCAINE 2% 100MG/5ML SDV (FOR ANES.) As Ordered ONE (12:29)
[2021-01-01] MEDS ORDERED: MIDAZOLAM INJ 2MG/2ML VIAL (J2250 PER 1MG) As Ordered ONE (12:29)
[2021-01-01] MEDS ORDERED: ROCURONIUM BROMIDE 50 MG/5 ML VIAL As Ordered ONE ×2 (12:29→15:06)
[2021-01-01] MEDS ORDERED: ONDANSETRON 4MG/2ML VIAL As Ordered ONE (12:29)
[2021-01-01] MEDS ORDERED: ceFAZolin 2 GM/D5W 50 ML IV BAG (J0690 PER 500MG) As Ordered ONE (14:23)
[2021-01-01] MEDS ORDERED: BUPIVACAINE/EPIN 0.5% 30 ML VIAL As Ordered ONE (14:23)
[2021-01-01] MEDS ORDERED: VASOPRESSIN INJ 20 UNITS/ML VIAL As Ordered ONE (14:30)
[2021-01-01] MEDS ORDERED: PHENYLEPHRINE 10MG/ML 1ML VIAL (J2370 PER 1) As Ordered ONE (14:56)
[2021-01-01] MEDS ORDERED: ePHEDrine SULFATE 25 MG/5 ML(5MG/ML) SYRINGE As Ordered ONE (15:04)
[2021-01-01] MEDS ORDERED: SUGAMMADEX SODIUM 500 MG/5 ML VIAL (BRIDION) As Ordered ONE (15:07)
[2021-01-01] MEDS ORDERED: ACETAMINOPHEN 1000MG 100ML IV BTL (OFIRMEV) (J0131 PER 10MG) As Ordered ONE (15:08)
[2021-01-01] MEDS ORDERED: LR 1,000 ML IV SCH (16:55)
[2021-01-01] MEDS ORDERED: HYDROMORPHONE HCL 0.5 MG/ 0.5 ML SYRINGE (J1170 PER 1) IV PRN (16:55)
[2021-01-01] MEDS ORDERED: oxyCODONE 5MG TAB PO PRN (16:55)
[2021-01-01] MEDS ORDERED: METOCLOPRAMIDE INJ 10MG/2ML VIAL (J2765 PER 1) IV PRN (16:55)
[2021-01-01] MEDS ORDERED: fentaNYL 100 MCG/2 ML INJECTION (J3010) IV PRN (16:55)
[2021-01-01] MEDS ORDERED: ONDANSETRON 4MG/2ML VIAL IV PRN ×2 (16:55→17:05)
[2021-01-01] MEDS ORDERED: ALBUTEROL SULFATE 2.5 MG/0.5 ML INH NEB SOLN INH ONE (17:00)
[2021-01-01] MEDS ORDERED: MORPHINE 4 MG/ML 1ML VIAL/SYRINGE (J2270) IV PRN (17:00)
[2021-01-01] MEDS ORDERED: ACETAMINOPHEN TAB 650MG DOSE (2X325MG) PO PRN (17:00)
[2021-01-01] MEDS: LR 1,000 ML IV SCH (17:00)
--- NOTE | 2021-01-01 17:01 | ROOPDOC ---
[facility] Report Of Operation Report of Operation DATE OF PROCEDURE: 01/01/21 PREPROCEDURE DIAGNOSES: [Right intertrochanteric femur fracture]. POSTPROCEDURE DIAGNOSES: [Right intertrochanteric femur fracture]. PROCEDURE PERFORMED: [Right cephalomedullary nail of fracture]. SURGEON: [Jean-Claude Lazaro MD DISPATCHER RADIO: [[place]] surgical supplies sterilizer. ANESTHESIA: [Masoud THORNTON]. ESTIMATED BLOOD LOSS: Approximately [200ml] mL. COMPLICATIONS: [None]. REMARKS: [None]. FINDINGS: [None] SPECIMENS REMOVED: [None] PROCEDURE NOTE: [None]. DESCRIPTION OF PROCEDURE: [Elderly male fall onto right side last night. Diagnosed with right intertrochanteric hip fracture. Consented for right cephalomedullary nail. Understood risk and benefits. Seen and cleared by medicine preoperatively. Patient was brought into the operating room here at [facility]. He was placed supine on the OSI fracture table. He was given a general anesthetic in usual manner. He is given 2 g of Ancef preoperatively. The right lower extremity was then placed into gentle traction and internal rotation using the fracture table. The left leg was abducted and immobilized well-padded to the central post of the fracture table. X-rays were performed intraoperatively to obtain a reduction with gentle traction and internal rotation. The patient's right arm was then immobilized ov er his chest and left arm on long the arm board. He was then prepped with a chlorhexidine scrub of the right leg from the ASIS to the proximal tibia. He was then prepped with chlorhexidine surgical prep from the ASIS to the proximal tibia. He was then prepped and draped in usual manner. Fluoroscopy was used to landmark the incisions. Incision was made proximal to the greater trochanter about 3 inches in length. Incision deepened down through the subcutaneous tissues through the abductor fracture. Then used a threaded pin under fluoroscopic guidance to obtain a stop position just on the medial side of the greater trochanter tip. K wire was advanced in position confirmed confirmed with AP and lateral x-rays. Soft tissue guide placed over the guidewire and the proximal femur reamed to 15 mm entry point. Ball tip guidewire was then placed into the intramedullary canal and advanced down to the rods the knee. We then measured the femur to take a 380 x 11 mm nail. Over the ball-tipped wire the canal was then incrementally reamed up to 12.5 to receive the 11 mm nail. The nail was then advanced over the guidewire under fluoroscopic guidance so that the hip screw would be on the inferior aspect of the femoral neck. Using the lateral radiolucent guide we measured the hip screw at 110 mm. This was then reamed through the nail to receive the hip screw. AP and lateral x-rays confirm good placement of the screw. The screw was then advanced into the femoral head and then placed into compression. We got good compression at the fracture site using the compression function. The screw was then locked into position approximately. We now focused on distal locking screw. Using perfect makah technique and lateral x-rays. We placed 2 distal locking screws into the distal aspect of the femoral nail. We then took final x-rays AP and lateral's. The wounds were irrigated with copious amounts of saline. Closed fashion skin with Vicryl. And romain to help with closure. Sterile dressing was applied to the wound. No complications occurred during the procedure.]. JEAN-CLAUDE EUCEDA MD Jan 01, 2021 17:01
--- NOTE | 2021-01-01 17:03 | REP ---
INDICATION: IN NAIL RIGHT HIP COMPARISON: 12/31/2020 TECHNIQUE: Intraoperative fluoroscopic imaging using portable C-arm technique FINDINGS: Satisfactory open reduction and fixation for intertrochanteric right hip fracture. Total fluoroscopic time 307.9 seconds. IMPRESSION: Satisfactory open reduction and fixation for right hip fracture. <Electronically signed by Ghassan Monroy > 01/01/21 [id number]
[2021-01-01] MEDS: PERCOCET 5MG/325MG TAB PO PRN (18:47)
[2021-01-01] MEDS: MORPHINE 2 MG/ML 1ML VIAL (J2270) IV PRN (21:19)
[2021-01-02] VITALS (8 sets, daily range): BP systolic 121–141; BP diastolic 70–91
[2021-01-02] MEDS: PERCOCET 5MG/325MG TAB PO PRN ×3 (00:43→21:19)
[2021-01-02] MEDS: METOPROLOL TART 25 MG TABLET PO SCH ×2 (00:44→05:36)
[2021-01-02] MEDS: ceFAZolin SOD 2 GM in IV 1 EA IV SCH ×2 (00:45→08:09)
[2021-01-02 04:42] LABS: HEMATOCRIT 39.4 % (42.0-52.0); MEAN CORPUSCULAR HEMOGLOBIN 33.7 pg (27.0-33.0); MEAN CORPUSCULAR HGB CONC 33.8 g/dl (32.0-36.5); MEAN CORPUSCULAR VOLUME 99.7 fl (80.0-96.0); PLATELET COUNT, AUTOMATED 193 10^3/uL (150-450); RED BLOOD COUNT 3.95 10^6/uL (4.30-6.10)
[2021-01-02 04:51] LABS: INR 0.88; PROTHROMBIN TIME 12.3 SECONDS (12.7-14.5)
[2021-01-02 04:58] LABS: HEMOGLOBIN 13.3 g/dl (13.5-17.5)
[2021-01-02] MEDS: MORPHINE 2 MG/ML 1ML VIAL (J2270) IV PRN ×2 (05:40→19:00)
[2021-01-02] MEDS: LR 1,000 ML IV SCH ×2 (05:55→19:40)
[2021-01-02] MEDS: LEVALBUTEROL 1.25 MG/0.5 ML CONCENTRATE NEB NEB SCH ×4 (07:13→20:01)
[2021-01-02] MEDS ORDERED: diltiaZEM **CD** 180 MG CAP PO ONE (07:30)
[2021-01-02] MEDS ORDERED: MOM 30ML SUSPENSION UDC PO PRN (07:40)
--- NOTE | 2021-01-02 07:41 | IPNPDOC ---
Date Seen The patient was seen on 01/02/21. Progress Note SUBJECTIVE: pod1 kyra placed for right hip fx. c/o 7/10 pain scale at hip. no cp, palpitations. tele: afib 105bpm OBJECTIVE: VITAL SIGNS: see below GENERAL: Awake, alert, oriented times three, answering questions appropriately. No use of respiratory accessory muscles.no distress HEENT: Anicteric. No jaundice. No jugular venous distention (JVD). No thyromegaly. No cervical lymphadenopathy. HEART: S1, S2. Irregularly irregular. Tachycardic. Nondisplaced point of maximum impulse. LUNGS: Clear to auscultation. No wheezing, rales or rhonchi. ABDOMEN: Obese, soft, nontender, nondistended. Positive bowel sounds. EXTREMITIES: Right elbow has no effusion. Full range of motion. He has some abrasions. postop right hip. Range of motion limited due to severe pain. LABORATORY DATA: Laboratory data and imaging studies have been reviewed. ASSESSMENT: A 65-year-old male with history of chronic atrial fibrillation on anticoagulation, osteoporosis, alcohol abuse, chronic obstructive pulmonary disease (COPD), hypertension, benign prostatic hypertrophy (BPH), reflux and class 1 obesity, admitted due to a fall with a right intertrochanteric fracture. IMPRESSION: Right intertrochanteric fracture. pod1. ortho for postop mgt. aru screen percocet prn pain .resumed on eliquis. bowel regimen controlled Hypertension. On metoprolol. Atrial fibrillation. On Cardizem resumed eliquis Chronic obstructive pulmonary disease (COPD) with recent acute bronchitis. On azithromycin. inhaled bronchodilators Alcohol abuse. On thiamin. Monitor for delirium tremens (DTs). obesity complicating care Deep venous thrombosis (DVT) prophylaxis. eliquis dispo: aru screen VS, I&O, 24H, Fishbone Vital Signs/I&O Vital Signs Date Time Temp Pulse Resp B/P (MAP) Pulse Ox O2 Delivery O2 Flow Rate FiO2 01/02/21 07:06 97.7 106 18 139/78 (98) 97 Nasal Cannula 2.0 I&O- Last 24 Hours up to 6 AM 01/02/21 06:00 Intake Total 1850 ml Output Total 1000 ml Balance 850 ml Laboratory Data 24H LABS Laboratory Tests 2 01/02/21 04:10: Nucleated Red Blood Cells % (auto) 0.0, Prothrombin Time 12.3, Prothromb Time International Ratio 0.88, Troponin I < 0.02 CBC/BMP Laboratory Tests 01/02/21 04:10 NINOSKA LÓPEZ MD Jan 02, 2021 07:41
[2021-01-02] MEDS ORDERED: PERCOCET 5MG/325MG TAB PO ONE (08:00)
[2021-01-02] MEDS: MIRALAX *UNIT DOSE* 17GM PACKET PO SCH ×2 (08:09→21:00)
[2021-01-02] MEDS: FEXOFENADINE 60 MG TAB PO SCH (08:09)
[2021-01-02] MEDS: ASPIRIN 81MG ENTERIC TABLET PO SCH ×2 (08:10→21:21)
[2021-01-02] MEDS: MULTIVITAMINS/MINERALS THERAP 1 TAB PO SCH (08:10)
[2021-01-02] MEDS: SPIRONOLACTONE 25 MG TAB PO SCH (08:10)
[2021-01-02] MEDS: SENOKOT S TAB PO SCH ×2 (08:10→21:22)
[2021-01-02] MEDS: OMEPRAZOLE 20 MG CAP PO SCH (08:12)
[2021-01-02] MEDS: FINASTERIDE 5 MG TAB PO SCH (08:12)
[2021-01-02] MEDS: CALCIUM/VITAMIN D 500 MG TAB PO SCH ×3 (08:12→17:26)
[2021-01-02] MEDS: SERTRALINE HCL 25 MG TABLET PO SCH (08:12)
[2021-01-02] MEDS: FUROSEMIDE 40 MG TAB PO SCH (08:13)
[2021-01-02] MEDS: THIAMINE 100 MG TAB PO SCH ×2 (08:14→21:21)
[2021-01-02] MEDS: AZITHROMYCIN 250MG TABLET PO SCH (08:14)
[2021-01-02] MEDS: TAMSULOSIN 0.4 MG CAP PO SCH (08:14)
[2021-01-02] MEDS: FOLIC ACID 1 MG TAB PO SCH (08:15)
[2021-01-02] MEDS: APIXABAN 5 MG TAB (ELIQUIS) PO SCH ×2 (08:15→21:21)
--- NOTE | 2021-01-02 08:47 | ECGEPIP ---
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
[2021-01-02] MEDS ORDERED: PERCOCET PO (16:17)
[2021-01-02] MEDS ORDERED: SENN-52 PO (16:17)
[2021-01-02] MEDS ORDERED: MIRA1POW3 PO (16:17)
--- NOTE | 2021-01-02 17:34 | ECHO ---
ECHOCARDIOGRAM DATE OF PROCEDURE: 01/02/2021 Age: Gender: Male Height: 178 cm Weight: 98 kg REFERRING PHYSICIAN: Sruthi Broussard M.D. INDICATION: Syncope. MEASUREMENTS: IVS 0.9 cm LV 4.7 cm LVPW 0.9 cm RV 3.3 cm Aorta 3.9 cm LA 4.0 cm FINDINGS: This study is of fair technical quality. The patient is in atrial fibrillation with controlled ventricular rate and narrow QRS complex. Left ventricle is of normal size. There is probable normal left ventricular (LV) systolic function based on very limited visualization. Right ventricle appears to have thickened cobian, but mobility is preserved. Both atria appear at least mildly enlarged. Aortic valve was poorly visualized, but grossly appears normal. The same applies for mitral and tricuspid valves. Pulmonic valve was not visualized at all. There is pericardial fat pad and trivial pericardial effusion. Inferior vena cava was not seen. Aortic root is dilated at 3.9 cm. Aortic arch appears normal. Abdominal aorta was not well seen. Doppler interrogation reveals no significant aortic, mitral or tricuspid valvular disease. Calculated pulmonary artery pressure is within normal limits, assuming normal central venous pressure. Evaluation of diastolic function is inconclusive due to underlying atrial fibrillation. CONCLUSIONS: 1. Study is of fair technical quality. Patient is in atrial fibrillation with controlled rate and narrow QRS complex. 2. Normal left ventricular (LV) size and probable normal systolic function based on limited views. 3. No hemodynamically significant aortic, mitral or tricuspid valvular disease. 4. Unable to estimate central venous pressure, but probably normal pulmonary artery pressure. 5. Borderline dilated aortic root (3.9 cm). 6. Pericardial fat pad and trivial pericardial effusion is present.
[2021-01-02] MEDS: MONTELUKAST 10 MG TAB PO SCH (21:20)
[2021-01-03 06:00] VITALS: BP 119/80
[2021-01-03 06:13] LABS: HEMATOCRIT 35.2 % (42.0-52.0); HEMOGLOBIN 12.1 g/dl (13.5-17.5); MEAN CORPUSCULAR HGB CONC 34.4 g/dl (32.0-36.5); MEAN CORPUSCULAR VOLUME 98.9 fl (80.0-96.0); PLATELET COUNT, AUTOMATED 174 10^3/uL (150-450); RED BLOOD COUNT 3.56 10^6/uL (4.30-6.10)
[2021-01-03 06:23] LABS: INR 1.2; PROTHROMBIN TIME 15.6 SECONDS (12.7-14.5)
[2021-01-03] MEDS: LEVALBUTEROL 1.25 MG/0.5 ML CONCENTRATE NEB NEB SCH ×4 (07:17→19:40)
[2021-01-03] MEDS: MIRALAX *UNIT DOSE* 17GM PACKET PO SCH ×2 (08:04→20:39)
[2021-01-03] MEDS: PERCOCET 5MG/325MG TAB PO PRN ×3 (08:05→20:41)
[2021-01-03] MEDS: AZITHROMYCIN 250MG TABLET PO SCH (08:08)
[2021-01-03] MEDS: FOLIC ACID 1 MG TAB PO SCH (08:08)
[2021-01-03] MEDS: FUROSEMIDE 40 MG TAB PO SCH (08:08)
[2021-01-03] MEDS: SENOKOT S TAB PO SCH ×2 (08:08→20:40)
[2021-01-03] MEDS: APIXABAN 5 MG TAB (ELIQUIS) PO SCH ×2 (08:08→20:42)
[2021-01-03] MEDS: TAMSULOSIN 0.4 MG CAP PO SCH (08:08)
[2021-01-03] MEDS: CALCIUM/VITAMIN D 500 MG TAB PO SCH ×3 (08:09→18:35)
[2021-01-03] MEDS: MULTIVITAMINS/MINERALS THERAP 1 TAB PO SCH (08:09)
[2021-01-03] MEDS: OMEPRAZOLE 20 MG CAP PO SCH (08:09)
[2021-01-03] MEDS: SPIRONOLACTONE 25 MG TAB PO SCH (08:09)
[2021-01-03] MEDS: THIAMINE 100 MG TAB PO SCH (08:09)
[2021-01-03] MEDS: SERTRALINE HCL 25 MG TABLET PO SCH (08:09)
[2021-01-03] MEDS: FINASTERIDE 5 MG TAB PO SCH (08:09)
[2021-01-03] MEDS: diltiaZEM **CD** 180 MG CAP PO SCH (08:11)
--- NOTE | 2021-01-03 08:42 | IPN ---
PROGRESS NOTE DATE: 01/03/2021 Patient says that his pain is at a 5/10 this morning. No fever, chills, or shortness of breath. He did have atrial fibrillation with rapid ventricular rate (RVR), rate of 110. He currently denies any chest pain, pressure, tightness, lightheadedness, or dizziness. He would like to go home and is not interested in acute rehabilitation. However, he only stood up yesterday and did not ambulate around the room. Vital signs: Temperature 98.1, pulse 111, respiratory rate 18, blood pressure 119/80, 93% on 2 liters nasal cannula. Generally: Patient is awake, alert, oriented times three, answering questions appropriately. Face is symmetric, tongue is midline, no facial asymmetry. No jugular venous distension (JVD), thyromegaly, or cervical lymphadenopathy. No carotid bruits. Heart: S1, S2, irregularly irregular, tachycardic. Lungs: Clear to auscultation. No wheezing, rales, or rhonchi. Abdomen: Obese, soft, nontender, nondistended, positive bowel sounds. Extremities: Postoperative right hip. No pitting edema. Laboratory data, imaging studies, microbiology have been reviewed. ASSESSMENT AND PLAN: 65-year-old male with history of chronic atrial fibrillation on chronic anticoagulation with Eliquis, hypertension, chronic obstructive pulmonary disease, alcohol abuse, and obesity, presented status post a fall with a right intertrochanteric fracture. IMPRESSION: 1. Right intertrochanteric fracture postoperative day #2. Orthopedics for postoperative management of the surgical site. Acute rehabilitation unit (ARU) screen. Percocet as needed for pain. Resumed on Eliquis 5 twice a day. On bowel regimen. Activity as tolerated and per orthopaedic surgery. 2. Hypertension. Controlled on current dose of diltiazem. 3. Recent bronchitis. On azithromycin. 4. Alcohol abuse. Delirium tremens (DT) precautions. 5. Chronic lower extremity edema. On Lasix. No history of congestive heart failure. Echo reviewed, normal systolic function and no diastolic dysfunction. DISPOSITION: Awaiting acute rehabilitation unit (ARU) screen. MTDD
--- NOTE | 2021-01-03 11:28 | REP ---
INDICATION: post op right cephalomedullary nail. COMPARISON: 12/31/2020 TECHNIQUE: AP and lateral views FINDINGS: The previously described proximal femoral fracture has been openly reduced and internally fixed. A lag screw is seen affixing the femoral neck fracture with a femoral intramedullary kyra. The distal aspect of the kyra does not breach the knee joint and the distal portion of the lag screw does not breach the hip joint. There is no evidence of an acute fracture. IMPRESSION: Status post ORIF as above <Electronically signed by Jas Stevenson > 01/03/21 1122
--- NOTE | 2021-01-03 13:03 | IPNPDOC ---
Subjective Date Seen The patient was seen on 01/03/21. Subjective Chief Complaint/HPI Postop day 2 right cephalomedullary nail. Events since last encounter Patient more comfortable today. Able to stand and mobilize short distance with physical therapy. Postop x-rays show intact fixation and well aligned fracture. Objective Physical Examination General Exam: Positive: Cooperative Neuro Exam: Positive: Strength at 5/5 X4 ext, Normal Tone, Sensation Intact Psych Exam: Positive: Memory Intact Other physical findings Patient lying comfortably in bed. Dressing CMP dry and intact. Patient states pain is much improved. Neurovascular intact distally. Good pulses distally. Was able to mobilize a physical this morning. RAD Interpretation Rad Actions: Films Reviewed RAD Interpretation: Normal, Unchanged Assessment /Plan Plan/VTE VTE Prophylaxis Ordered?: Yes Plan Diet: Continue Current Activity: Encourage Ambulation Therapy: PT, OT, Home Safety Eval Pt and Family Services: Home Care Patient to continue mobilizing with physical therapy. Patient may be w eightbearing as tolerated . if mobilize safely and able to be return home with home care and family assistance. Follow-up with orthopedics in 2 weeks [place] out in 14 days May change dressing and cleaned with chlorhexidine. Reapply clean dry dressing DVT prophylaxis and patient anticoagulation as per the hospitalist. VS, I&O, 24H, Fishbone Vital Signs/I&O Vital Signs Date Time Temp Pulse Resp B/P (MAP) Pulse Ox O2 Delivery O2 Flow Rate FiO2 01/03/21 08:35 17 01/03/21 08:21 2.0 01/03/21 08:11 126 144/94 01/03/21 08:05 Nasal Cannula 01/03/21 06:00 98.1 93 I&O- Last 24 Hours up to 6 AM 01/03/21 06:00 Intake Total 1020 ml Output Total 200 ml Balance 820 ml Laboratory Data 24H LABS Laboratory Tests 2 01/03/21 05:34: Nucleated Red Blood Cells % (auto) 0.0, Prothrombin Time 15.6H, Prothromb Time I nternational Ratio 1.20, Troponin I < 0.02 CBC/BMP Laboratory Tests 01/03/21 05:34 JEAN-CLAUDE EUCEDA MD Jan 03, 2021 13:03
[2021-01-03 13:37] LABS: TOTAL 25(OH) VITAMIN D 25.3 NG/ML (30.0-100.0)
[2021-01-03 14:00] VITALS: BP 129/84
[2021-01-03] MEDS: FEXOFENADINE 60 MG TAB PO SCH (14:07)
[2021-01-03] MEDS: MONTELUKAST 10 MG TAB PO SCH (20:40)
[2021-01-03 22:00] VITALS: BP 141/94
[2021-01-04 05:43] LABS: HEMATOCRIT 32.5 % (42.0-52.0); HEMOGLOBIN 11.2 g/dl (13.5-17.5); MEAN CORPUSCULAR HEMOGLOBIN 34.5 pg (27.0-33.0); MEAN CORPUSCULAR HGB CONC 34.5 g/dl (32.0-36.5); PLATELET COUNT, AUTOMATED 165 10^3/uL (150-450); RED BLOOD COUNT 3.25 10^6/uL (4.30-6.10); WHITE BLOOD COUNT 7.8 10^3/uL (4.0-10.0)
[2021-01-04 05:55] LABS: INR 1.17; PROTHROMBIN TIME 15.4 SECONDS (12.7-14.5)
[2021-01-04] MEDS: PERCOCET 5MG/325MG TAB PO PRN ×3 (05:55→21:12)
[2021-01-04 06:00] VITALS: BP 126/92
[2021-01-04] MEDS: LEVALBUTEROL 1.25 MG/0.5 ML CONCENTRATE NEB NEB SCH ×4 (07:14→19:35)
[2021-01-04 08:33] VITALS: BP 142/87
[2021-01-04] MEDS: SENOKOT S TAB PO SCH ×2 (08:35→21:11)
[2021-01-04] MEDS: MIRALAX *UNIT DOSE* 17GM PACKET PO SCH ×2 (08:35→21:10)
[2021-01-04] MEDS: FOLIC ACID 1 MG TAB PO SCH (08:36)
[2021-01-04] MEDS: SERTRALINE HCL 25 MG TABLET PO SCH (08:36)
[2021-01-04] MEDS: FUROSEMIDE 40 MG TAB PO SCH (08:36)
[2021-01-04] MEDS: TAMSULOSIN 0.4 MG CAP PO SCH (08:36)
[2021-01-04] MEDS: AZITHROMYCIN 250MG TABLET PO SCH (08:36)
[2021-01-04] MEDS: FEXOFENADINE 60 MG TAB PO SCH (08:36)
[2021-01-04] MEDS: diltiaZEM **CD** 180 MG CAP PO SCH (08:36)
[2021-01-04] MEDS: MULTIVITAMINS/MINERALS THERAP 1 TAB PO SCH (08:37)
[2021-01-04] MEDS: CALCIUM/VITAMIN D 500 MG TAB PO SCH ×3 (08:37→17:18)
[2021-01-04] MEDS: FINASTERIDE 5 MG TAB PO SCH (08:37)
[2021-01-04] MEDS: SPIRONOLACTONE 25 MG TAB PO SCH (08:37)
[2021-01-04] MEDS: OMEPRAZOLE 20 MG CAP PO SCH (08:37)
[2021-01-04] MEDS: APIXABAN 5 MG TAB (ELIQUIS) PO SCH ×2 (08:37→21:10)
--- NOTE | 2021-01-04 10:53 | IPN ---
PROGRESS NOTE DATE: 01/04/2021 SUBJECTIVE: Darrell is seen in [address] [place] [address]. He was admitted with a right hip fracture. He is postop day #3. He has been tachycardic since admission and there is a concern about alcohol withdrawal. Denies any chest pain or shortness of breath. Had an echocardiogram with normal systolic function, no diastolic dysfunction. No fever or chills. Denies cough. OBJECTIVE: VITAL SIGNS: Afebrile. Vital signs are stable. Heart rate between 94 and 124. GENERAL APPEARANCE: Alert, conversant, looks anxious. LUNGS: Clear. HEART: Regular rhythm. ABDOMEN: Soft, nontender. No peripheral edema. LABORATORY DATA: CBC is unremarkable. White count is 7.8, hemoglobin is 11.2, I do not have electrolytes for today. The last ones were two days ago. Note: Blood alcohol on admission was 0.6. IMPRESSION: 1. Right hip fracture postop day #3, he is on prophylactic Eliquis for DVT prophylaxis. His pain is under good control. 2. Hypertension, blood pressure is well-controlled on Diltiazem. 3. Tachycardia, suspect from alcohol withdrawal. WA protocol is in place. 4. Chronic lower extremity edema, no evidence of congestive heart failure. 5. History of BPH, continue his finasteride and tamsulosin, he is at risk of acute urinary retention, ambulation once feasible advised. 6. Recent bronchitis. He is on Azithromycin. At this point he probably could be finishing that off and I am going to discontinue it. 7. ARU screen was ordered. I have ordered electrolytes for tomorrow.
[2021-01-04 14:00] VITALS: BP 138/85
[2021-01-04] MEDS: MONTELUKAST 10 MG TAB PO SCH (21:11)
[2021-01-04 22:00] VITALS: BP 133/86
[2021-01-05 06:00] VITALS: BP 131/86
[2021-01-05 06:42] LABS: BLOOD UREA NITROGEN 14 MG/DL (7-18); CALCIUM LEVEL 8.5 MG/DL (8.8-10.2); CARBON DIOXIDE LEVEL 33 MEQ/L (21-32); CHLORIDE LEVEL 101 MEQ/L (98-107); CREATININE FOR GFR 0.82 MG/DL (0.70-1.30); GLOMERULAR FILTRATION RATE > 60.0 (>49); GLUCOSE, FASTING 104 MG/DL (70-100); POTASSIUM SERUM 3.6 MEQ/L (3.5-5.1); SODIUM LEVEL 136 MEQ/L (136-145)
[2021-01-05] MEDS: PERCOCET 5MG/325MG TAB PO PRN ×3 (06:47→21:41)
[2021-01-05] MEDS: LEVALBUTEROL 1.25 MG/0.5 ML CONCENTRATE NEB NEB SCH ×4 (07:18→20:19)
[2021-01-05 08:00] VITALS: BP 128/87
[2021-01-05] MEDS: MIRALAX *UNIT DOSE* 17GM PACKET PO SCH ×2 (08:26→21:40)
[2021-01-05] MEDS: FEXOFENADINE 60 MG TAB PO SCH (08:26)
[2021-01-05] MEDS: SENOKOT S TAB PO SCH ×2 (08:27→21:41)
[2021-01-05] MEDS: FINASTERIDE 5 MG TAB PO SCH (08:27)
[2021-01-05] MEDS: MULTIVITAMINS/MINERALS THERAP 1 TAB PO SCH (08:27)
[2021-01-05] MEDS: OMEPRAZOLE 20 MG CAP PO SCH (08:27)
[2021-01-05] MEDS: AZITHROMYCIN 250MG TABLET PO SCH (08:27)
[2021-01-05] MEDS: FOLIC ACID 1 MG TAB PO SCH (08:28)
[2021-01-05] MEDS: SERTRALINE HCL 25 MG TABLET PO SCH (08:28)
[2021-01-05] MEDS: SPIRONOLACTONE 25 MG TAB PO SCH (08:28)
[2021-01-05] MEDS: FUROSEMIDE 40 MG TAB PO SCH (08:29)
[2021-01-05] MEDS: TAMSULOSIN 0.4 MG CAP PO SCH (08:29)
[2021-01-05] MEDS: diltiaZEM **CD** 180 MG CAP PO SCH (08:29)
[2021-01-05] MEDS: APIXABAN 5 MG TAB (ELIQUIS) PO SCH ×2 (08:29→21:40)
[2021-01-05] MEDS: CALCIUM/VITAMIN D 500 MG TAB PO SCH ×3 (08:29→18:50)
[2021-01-05] MEDS ORDERED: POTASSIUM CHLORIDE 10MEQ SR TABLET PO ONE (09:00)
[2021-01-05 09:08] LABS: MAGNESIUM LEVEL 2.3 MG/DL (1.8-2.4)
[2021-01-05] MEDS: DIGOXIN 0.125 MG TAB PO SCH (10:01)
--- NOTE | 2021-01-05 10:04 | IPN ---
PROGRESS NOTE DATE: 01/05/2021 SUBJECTIVE: Darrell is seen in the PCU. He has atrial fibrillation and his rate is mildly elevated, it gets more elevated with exertion. I was concerned about some alcohol withdrawal yesterday, he seemed a bit anxious but that seems to have improved. No shortness of breath. No chest pain. The nursing staff does note tachycardic episodes with minimal exertion. 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 It does complicate medication prescribing due the large number of drug interactions. OBJECTIVE: VITAL SIGNS: Blood pressure 128/87, pulse 110 to 130, respiratory rate 18, 92% O2 saturation on 2 liters (looks calmer than yesterday). LUNGS: Clear. HEART: Irregular rate and rhythm, rate around 120. ABDOMEN: Soft, nontender, no masses. EXTREMITIES: No peripheral edema. LABORATORY DATA: Sodium 136, potassium 3.6, BUN 14, creatinine 0.8, glucose 104, magnesium 2.3. EKG shows nonspecific changes. He had nonspecific changes on his admission EKG as well. IMPRESSION: 1. Atrial fibrillation, rapid ventricular response. Added Digoxin 0.125 mg p.o. daily, I reduced the dose due to the Azithromycin, continue his Diltiazem 360 mg daily. He is on Eliquis for thromboembolic prophylaxis. 2. Hypertension, blood pressure is well-controlled on current dose of Diltiazem. 3. Suspected alcohol withdrawal. CIWA protocol is in place but he seems better today. 4. History of BPH, continue his current regimen. 5. Chronic lung disease, he is on Azithromycin for immunomodulation and not for a recent bronchitis as was reported to me. We will continue this medicine but will need to be aware of drug interactions.
--- NOTE | 2021-01-05 10:57 | ECGEPIP ---
[facility] Test Date: 2021-01-05 Pat Name: JUAN COFFMAN Department: Room: [place] [address] Gender: Male Moss Picker: [id number] : [id number] Requested By: Justen Macias Order Number: [id number] Reading MD: Dhaval George Measurements Intervals [place] Rate: 103 P: WV: QRS: 37 QRSD: 86 T: 225 QT: 320 QTc: 419 Interpretive Statements Atrial fibrillation with rapid ventricular response ST & T wave abnormality, consider inferior ischemia rate increased from tracing done 12-31-20 Electronically Signed on 01-05-2021 10:57:20 EDT by Dhaval George
[2021-01-05 14:00] VITALS: BP 136/86
[2021-01-05] MEDS: MONTELUKAST 10 MG TAB PO SCH (21:41)
[2021-01-05 21:51] VITALS: BP 130/82
[2021-01-06] MEDS: LEVALBUTEROL HFA 45MCG/ACT 15 GM INHALER INH PRN (04:23)
[2021-01-06 06:00] VITALS: BP 136/84
[2021-01-06 06:51] LABS: BLOOD UREA NITROGEN 13 MG/DL (7-18); CALCIUM LEVEL 8.6 MG/DL (8.8-10.2); CARBON DIOXIDE LEVEL 31 MEQ/L (21-32); CHLORIDE LEVEL 102 MEQ/L (98-107); GLOMERULAR FILTRATION RATE > 60.0 (>49); GLUCOSE, FASTING 102 MG/DL (70-100); POTASSIUM SERUM 3.9 MEQ/L (3.5-5.1); SODIUM LEVEL 136 MEQ/L (136-145)
[2021-01-06] MEDS: LEVALBUTEROL 1.25 MG/0.5 ML CONCENTRATE NEB NEB SCH ×4 (07:07→17:59)
[2021-01-06] MEDS: SENOKOT S TAB PO SCH ×2 (09:31→20:11)
[2021-01-06] MEDS: MULTIVITAMINS/MINERALS THERAP 1 TAB PO SCH (09:31)
[2021-01-06] MEDS: FINASTERIDE 5 MG TAB PO SCH (09:31)
[2021-01-06] MEDS: SPIRONOLACTONE 25 MG TAB PO SCH (09:31)
[2021-01-06] MEDS: SERTRALINE HCL 25 MG TABLET PO SCH (09:31)
[2021-01-06] MEDS: OMEPRAZOLE 20 MG CAP PO SCH (09:32)
[2021-01-06] MEDS: APIXABAN 5 MG TAB (ELIQUIS) PO SCH ×2 (09:32→20:10)
[2021-01-06] MEDS: FOLIC ACID 1 MG TAB PO SCH (09:32)
[2021-01-06] MEDS: CALCIUM/VITAMIN D 500 MG TAB PO SCH ×3 (09:32→18:11)
[2021-01-06] MEDS: DIGOXIN 0.125 MG TAB PO SCH (09:32)
[2021-01-06] MEDS: AZITHROMYCIN 250MG TABLET PO SCH (09:33)
[2021-01-06] MEDS: TAMSULOSIN 0.4 MG CAP PO SCH (09:33)
[2021-01-06] MEDS: FUROSEMIDE 40 MG TAB PO SCH (09:33)
[2021-01-06] MEDS: MIRALAX *UNIT DOSE* 17GM PACKET PO SCH ×2 (09:33→20:11)
[2021-01-06] MEDS: FEXOFENADINE 60 MG TAB PO SCH (09:33)
[2021-01-06] MEDS: diltiaZEM **CD** 180 MG CAP PO SCH (09:39)
--- NOTE | 2021-01-06 13:30 | IPN ---
PROGRESS NOTE DATE: 01/06/2021 SUBJECTIVE: Darrell is seen in [facility]. He had some atrial fibrillation with rapid ventricular response yesterday, we started Digoxin, the rate has come under good control. The blood pressure is well-controlled and cardiovascular situation is stable. OBJECTIVE: LUNGS: Clear. HEART: Regular rhythm, rate around 100. ABDOMEN: Soft, nontender. No masses. No peripheral edema. LABORATORY DATA: Electrolytes are unremarkable. Potassium is 3.9. Magnesium yesterday was 2.3. IMPRESSION: 1. Atrial fibrillation with rapid ventricular response, doing well on Digoxin 0.125 mg daily to supplement his Diltiazem 360 mg daily and he takes Eliquis for thromboembolic prophylaxis. 2. Hypertension, blood pressure is well-controlled. 3. Chronic lung disease on Azithromycin for immunosuppression. This needs to be continued. 4. Right hip fracture postop day #5. Plan was for ARU, I just received a text that he is not going to ARU so we are awaiting to hear back from [facility] about short-term rehab versus home discharge.
[2021-01-06 14:00] VITALS: BP 129/79
[2021-01-06] MEDS: PERCOCET 5MG/325MG TAB PO PRN (18:12)
[2021-01-06 20:00] VITALS: BP 102/77
[2021-01-06] MEDS: MONTELUKAST 10 MG TAB PO SCH (20:11)
[2021-01-06 20:14] VITALS: BP 113/81
[2021-01-07] MEDS: PERCOCET 5MG/325MG TAB PO PRN ×3 (02:03→21:27)
[2021-01-07 06:00] VITALS: BP 113/81
[2021-01-07 06:52] LABS: BLOOD UREA NITROGEN 13 MG/DL (7-18); CALCIUM LEVEL 8.2 MG/DL (8.8-10.2); CARBON DIOXIDE LEVEL 31 MEQ/L (21-32); CHLORIDE LEVEL 102 MEQ/L (98-107); CREATININE FOR GFR 0.93 MG/DL (0.70-1.30); GLOMERULAR FILTRATION RATE > 60.0 (>49); GLUCOSE, FASTING 92 MG/DL (70-100); POTASSIUM SERUM 3.9 MEQ/L (3.5-5.1); SODIUM LEVEL 138 MEQ/L (136-145)
[2021-01-07] MEDS: LEVALBUTEROL 1.25 MG/0.5 ML CONCENTRATE NEB NEB SCH ×4 (07:14→19:22)
[2021-01-07] MEDS: SPIRONOLACTONE 25 MG TAB PO SCH (08:42)
[2021-01-07] MEDS: FEXOFENADINE 60 MG TAB PO SCH (08:42)
[2021-01-07] MEDS: TAMSULOSIN 0.4 MG CAP PO SCH (08:42)
[2021-01-07] MEDS: MIRALAX *UNIT DOSE* 17GM PACKET PO SCH ×2 (08:42→21:00)
[2021-01-07] MEDS: CALCIUM/VITAMIN D 500 MG TAB PO SCH ×3 (08:43→17:39)
[2021-01-07] MEDS: MULTIVITAMINS/MINERALS THERAP 1 TAB PO SCH (08:43)
[2021-01-07] MEDS: APIXABAN 5 MG TAB (ELIQUIS) PO SCH ×2 (08:43→21:16)
[2021-01-07] MEDS: SENOKOT S TAB PO SCH ×2 (08:43→21:00)
[2021-01-07] MEDS: FINASTERIDE 5 MG TAB PO SCH (08:43)
[2021-01-07] MEDS: OMEPRAZOLE 20 MG CAP PO SCH (08:43)
[2021-01-07] MEDS: SERTRALINE HCL 25 MG TABLET PO SCH (08:43)
[2021-01-07] MEDS: AZITHROMYCIN 250MG TABLET PO SCH (08:43)
[2021-01-07] MEDS: FUROSEMIDE 40 MG TAB PO SCH (08:43)
[2021-01-07] MEDS: FOLIC ACID 1 MG TAB PO SCH (08:43)
[2021-01-07] MEDS: diltiaZEM **CD** 180 MG CAP PO SCH (08:44)
[2021-01-07] MEDS: DIGOXIN 0.125 MG TAB PO SCH (08:44)
[2021-01-07] MEDS ORDERED: DIGOXIN 0.125 MG TAB PO ONE (10:00)
--- NOTE | 2021-01-07 10:10 | IPN ---
PROGRESS NOTE DATE: 01/07/2021 SUBJECTIVE: Darrell is seen on [facility], he looked good when I saw him on rounds but physical therapist notes when he got out of bed his heart rate went up to 160 and he desaturated to an unspecified degree. He has atrial fibrillation. He has had some problems with intermittent bradycardia as well as intermittent tachycardia. He denies any chest pain, shortness of breath or palpitations. Overall, he actually feels quite well. We thought he was going to ARU but he was declined by ARU. The patient is now deciding between discharge home versus short-term rehab. OBJECTIVE: VITAL SIGNS: Blood pressure is 116/70, pulse when I saw him was around 90, per report it gets up to 160 with exertion. HEENT: Unremarkable. LUNGS: Clear. HEART: Regular rate and rhythm. ABDOMEN: Soft, nontender. EXTREMITIES: No peripheral edema. LABORATORY DATA: Sodium is 138, potassium is 3.9, BUN 13, creatinine 0.9. IMPRESSION: 1. Atrial fibrillation with rapid ventricular response. Will give him Digoxin 0.125 mg p.o. today to increase his total daily dose to 0.25 daily. Continue his Diltiazem 360 mg daily, Eliquis for thromboembolic prophylaxis, hypertension, blood pressure is well-controlled. 2. Chronic lung disease. He takes azithromycin for immunosuppression, not infection, so this should not be discontinued. 3. Right hip fracture. Patient is deciding between discharge home or short-term rehab. Patient is not ready for discharge yet particularly in the face of the continuing cardiac events.
[2021-01-07 14:00] VITALS: BP 112/66
[2021-01-07] MEDS: MONTELUKAST 10 MG TAB PO SCH (21:16)
[2021-01-07 22:00] VITALS: BP 117/73
[2021-01-08] MEDS: PERCOCET 5MG/325MG TAB PO PRN ×3 (05:39→23:09)
[2021-01-08 06:00] VITALS: BP 133/76
[2021-01-08 06:48] LABS: BLOOD UREA NITROGEN 13 MG/DL (7-18); CALCIUM LEVEL 8.2 MG/DL (8.8-10.2); CARBON DIOXIDE LEVEL 31 MEQ/L (21-32); CHLORIDE LEVEL 104 MEQ/L (98-107); GLOMERULAR FILTRATION RATE > 60.0 (>49); GLUCOSE, FASTING 86 MG/DL (70-100); POTASSIUM SERUM 3.7 MEQ/L (3.5-5.1); SODIUM LEVEL 139 MEQ/L (136-145)
[2021-01-08] MEDS: LEVALBUTEROL 1.25 MG/0.5 ML CONCENTRATE NEB NEB SCH (07:05)
[2021-01-08] MEDS: SENOKOT S TAB PO SCH ×2 (09:00→20:14)
[2021-01-08] MEDS: MIRALAX *UNIT DOSE* 17GM PACKET PO SCH ×2 (09:00→20:14)
[2021-01-08] MEDS: FEXOFENADINE 60 MG TAB PO SCH (09:29)
[2021-01-08] MEDS: TAMSULOSIN 0.4 MG CAP PO SCH (09:30)
[2021-01-08] MEDS: APIXABAN 5 MG TAB (ELIQUIS) PO SCH ×2 (09:30→20:14)
[2021-01-08] MEDS: MULTIVITAMINS/MINERALS THERAP 1 TAB PO SCH (09:30)
[2021-01-08] MEDS: FINASTERIDE 5 MG TAB PO SCH (09:31)
[2021-01-08] MEDS: OMEPRAZOLE 20 MG CAP PO SCH (09:31)
[2021-01-08] MEDS: diltiaZEM **CD** 180 MG CAP PO SCH (09:32)
[2021-01-08] MEDS: AZITHROMYCIN 250MG TABLET PO SCH (09:32)
[2021-01-08] MEDS: SERTRALINE HCL 25 MG TABLET PO SCH (09:32)
[2021-01-08] MEDS: DIGOXIN 0.25 MG TAB PO SCH (09:32)
[2021-01-08] MEDS: CALCIUM/VITAMIN D 500 MG TAB PO SCH ×3 (09:32→18:07)
[2021-01-08] MEDS: DIGOXIN 0.125 MG TAB PO SCH (09:33)
[2021-01-08] MEDS: FUROSEMIDE 40 MG TAB PO SCH (09:33)
[2021-01-08] MEDS: FOLIC ACID 1 MG TAB PO SCH (09:33)
[2021-01-08] MEDS: SPIRONOLACTONE 25 MG TAB PO SCH (09:33)
[2021-01-08] MEDS: IPRATROPIUM 0.02% SOLN 0.5MG 2.5ML NEB INH SCH ×3 (11:32→19:35)
[2021-01-08 14:00] VITALS: BP 124/70
--- NOTE | 2021-01-08 16:57 | IPNPDOC ---
Subjective Date Seen The patient was seen on 01/08/21. Subjective Chief Complaint/HPI Ishan reports she feels fairly well today. Nursing reports that his hip pain was rated as 6/10 but he did not want any medications for it. There are no other concerns or complaints at this time. General: Reports: Normal Appetite Constitutional: Denies: Chills, Fever Pulmonary: Reports: Dyspnea; Denies: Cough Cardiovascular: Denies: Chest Pain, Palpitations Gastrointestinal: Denies: Nausea, Vomiting, Abdominal Pain Genitourinary: Denies: Dysuria Hematologic: Denies: Bruising, Bleeding Excessively Musculoskeletal: Reports: Joint Pain (right hip), Muscle Pain Psych: Reports: Mood Normal Objective Physical Examination General Exam: Positive: Alert, Cooperative (laying in his bedroom and in the ro om accompanied by the nurse), No Acute Distress Eye Exam: Positive: Conjunctiva & lids normal; Negative: Sclera icteric ENT Exam: Positive: Atraumatic, Mucous membr. moist/pink Neck Exam: Positive: Supple; Negative: Lymphadenopathy Chest Exam: Positive: Clear to auscultation, Normal air movement Heart Exam: Positive: Rate Normal, Normal S1, Normal S2; Negative: Murmurs Abdomen Exam: Positive: Normal bowel sounds, Soft; Negative: Tenderness Extremity Exam: Positive: Tenderness (around the surgical site is right hip. There is a foam dressing that is clean dry and intact); Negative: Edema Skin Exam: Positive: Nl turgor and temperature Neuro Exam: Positive: Normal Tone; Negative: Normal Gait (he was able to demonstrate using his walker for about 5 feet, but that he had to stop) Psych Exam: Positive: Mood NL, Memory Intact Assessment /Plan Assessment 1. Atrial fibrillation with rapid ventricular response. The total daily dose to 0.25 of digoxin daily seemed to do the trick. He still gets fairly tachycardic when he tries to walk, by think some of this is actually related to his breathing. Continue his Diltiazem 360 mg daily, Eliquis for thromboembolic prophylaxis, hypertension, blood pressure is well-controlled. 2. Chronic lung disease. He takes azithromycin for immunosuppression, not infection, so this should not be discontinued. He is having a lot of trouble breathing is soon as she started to try to walk around his room. He has not been on his Treligy Elipta for several days. I changed to Xopenex to Atrovent to see if we can decrease his reflux tachycardia since he's getting this medication 4 times a day routinely. I also asked him to check with his to see if she could bring his Trelegy in; I put the order in to allow him to use this once it's approved by pharmacy. 3. Right hip fracture. Patient is deciding between discharge home or short- term rehab. Right now he is lean toward home, but he is not sure how well he would do with outpatient therapy. Plan/VTE VTE Prophylaxis Ordered?: Yes Plan Diet: Continue Current Activity: Encourage Ambulation Therapy: PT, OT, Home Safety Eval Pt and Family Services: Home Care VS, I&O, 24H, [facility] Vital Signs/I&O Vital Signs Date Time Temp Pulse Resp B/P (MAP) Pulse Ox O2 Delivery O2 Flow Rate FiO2 01/08/21 14:00 97.4 82 18 124/70 (88) 91 Room Air 01/08/21 09:00 2.0 I&O- Last 24 Hours up to 6 AM 01/08/21 06:00 Intake Total 1320 ml Output Total 1075 ml Balance 245 ml Laboratory Data 24H LABS Laboratory Tests 2 01/08/21 05:26: Anion Gap 4L, Glomerular Filtration Rate > 60.0, Calcium Level 8.2L CBC/BMP Laboratory Tests 01/08/21 05:26 Pancho Long MD Jan 08, 2021 4:57 pm
[2021-01-08] MEDS: TRELEGY ELLIPTA INH SCH (19:35)
[2021-01-08] MEDS: MONTELUKAST 10 MG TAB PO SCH (20:14)
[2021-01-08 22:00] VITALS: BP 122/70
[2021-01-09 06:27] VITALS: BP 118/83
[2021-01-09 07:05] LABS: BLOOD UREA NITROGEN 12 MG/DL (7-18); CALCIUM LEVEL 8.7 MG/DL (8.8-10.2); CARBON DIOXIDE LEVEL 31 MEQ/L (21-32); CHLORIDE LEVEL 105 MEQ/L (98-107); CREATININE FOR GFR 0.79 MG/DL (0.70-1.30); GLOMERULAR FILTRATION RATE > 60.0 (>49); GLUCOSE, FASTING 80 MG/DL (70-100); POTASSIUM SERUM 3.8 MEQ/L (3.5-5.1); SODIUM LEVEL 140 MEQ/L (136-145)
[2021-01-09] MEDS: IPRATROPIUM 0.02% SOLN 0.5MG 2.5ML NEB INH SCH ×4 (07:25→19:43)
[2021-01-09] MEDS: TAMSULOSIN 0.4 MG CAP PO SCH (07:58)
[2021-01-09] MEDS: SERTRALINE HCL 25 MG TABLET PO SCH (07:58)
[2021-01-09] MEDS: diltiaZEM **CD** 180 MG CAP PO SCH (07:59)
[2021-01-09] MEDS: FINASTERIDE 5 MG TAB PO SCH (07:59)
[2021-01-09] MEDS: APIXABAN 5 MG TAB (ELIQUIS) PO SCH ×2 (07:59→20:52)
[2021-01-09] MEDS: MIRALAX *UNIT DOSE* 17GM PACKET PO SCH ×2 (07:59→21:00)
[2021-01-09] MEDS: MULTIVITAMINS/MINERALS THERAP 1 TAB PO SCH (08:00)
[2021-01-09] MEDS: FEXOFENADINE 60 MG TAB PO SCH (08:00)
[2021-01-09] MEDS: AZITHROMYCIN 250MG TABLET PO SCH (08:00)
[2021-01-09] MEDS: DIGOXIN 0.125 MG TAB PO SCH (08:00)
[2021-01-09] MEDS: FOLIC ACID 1 MG TAB PO SCH (08:00)
[2021-01-09] MEDS: FUROSEMIDE 40 MG TAB PO SCH (08:00)
[2021-01-09] MEDS: PERCOCET 5MG/325MG TAB PO PRN ×2 (08:01→20:52)
[2021-01-09] MEDS: DIGOXIN 0.25 MG TAB PO SCH (08:02)
[2021-01-09] MEDS: OMEPRAZOLE 20 MG CAP PO SCH (08:02)
[2021-01-09] MEDS: CALCIUM/VITAMIN D 500 MG TAB PO SCH ×3 (08:02→17:43)
[2021-01-09] MEDS: SPIRONOLACTONE 25 MG TAB PO SCH (08:02)
[2021-01-09] MEDS: SENOKOT S TAB PO SCH ×2 (08:02→20:51)
--- NOTE | 2021-01-09 09:49 | IPN ---
PROGRESS NOTE DATE: 01/09/2021 SUBJECTIVE: Darrell is stable with no real changes. Tachycardia is better. His breathing is better with his inhaler. OBJECTIVE: VITAL SIGNS: Stable. Pulse in the 90 to 100 range. LUNGS: Clear. HEART: Regular rate and rhythm. ABDOMEN: Soft and nontender. ASSESSMENT/PLAN: The patient is doing well. Heart rate is under better control. Tomorrow he should be ready for either discharge home or short term rehab. Would like a home safety evaluation tomorrow to get a decision made on disposition.
[2021-01-09 14:00] VITALS: BP 102/66
[2021-01-09] MEDS: TRELEGY ELLIPTA INH SCH (19:45)
[2021-01-09] MEDS: MONTELUKAST 10 MG TAB PO SCH (20:52)
[2021-01-09 22:00] VITALS: BP 133/76
[2021-01-10 06:00] VITALS: BP 127/77
[2021-01-10 06:18] LABS: BLOOD UREA NITROGEN 12 MG/DL (7-18); CALCIUM LEVEL 8.6 MG/DL (8.8-10.2); CARBON DIOXIDE LEVEL 31 MEQ/L (21-32); CHLORIDE LEVEL 105 MEQ/L (98-107); CREATININE FOR GFR 0.75 MG/DL (0.70-1.30); GLOMERULAR FILTRATION RATE > 60.0 (>49); GLUCOSE, FASTING 83 MG/DL (70-100); POTASSIUM SERUM 3.9 MEQ/L (3.5-5.1); SODIUM LEVEL 139 MEQ/L (136-145)
[2021-01-10] MEDS: PERCOCET 5MG/325MG TAB PO PRN ×3 (06:32→20:51)
[2021-01-10] MEDS: IPRATROPIUM 0.02% SOLN 0.5MG 2.5ML NEB INH SCH ×4 (07:28→19:29)
[2021-01-10] MEDS: SPIRONOLACTONE 25 MG TAB PO SCH (10:00)
[2021-01-10] MEDS: SENOKOT S TAB PO SCH ×2 (10:01→20:50)
[2021-01-10] MEDS: CALCIUM/VITAMIN D 500 MG TAB PO SCH ×3 (10:01→17:59)
[2021-01-10] MEDS: FEXOFENADINE 60 MG TAB PO SCH (10:02)
[2021-01-10] MEDS: FINASTERIDE 5 MG TAB PO SCH (10:02)
[2021-01-10] MEDS: DIGOXIN 0.25 MG TAB PO SCH (10:02)
[2021-01-10] MEDS: diltiaZEM **CD** 180 MG CAP PO SCH (10:03)
[2021-01-10] MEDS: FUROSEMIDE 40 MG TAB PO SCH (10:03)
[2021-01-10] MEDS: SERTRALINE HCL 25 MG TABLET PO SCH (10:03)
[2021-01-10] MEDS: FOLIC ACID 1 MG TAB PO SCH (10:04)
[2021-01-10] MEDS: TAMSULOSIN 0.4 MG CAP PO SCH (10:04)
[2021-01-10] MEDS: MIRALAX *UNIT DOSE* 17GM PACKET PO SCH ×2 (10:04→20:50)
[2021-01-10] MEDS: DIGOXIN 0.125 MG TAB PO SCH (10:04)
[2021-01-10] MEDS: MULTIVITAMINS/MINERALS THERAP 1 TAB PO SCH (10:04)
[2021-01-10] MEDS: OMEPRAZOLE 20 MG CAP PO SCH (10:04)
[2021-01-10] MEDS: APIXABAN 5 MG TAB (ELIQUIS) PO SCH ×2 (10:04→20:53)
[2021-01-10] MEDS: AZITHROMYCIN 250MG TABLET PO SCH (10:05)
--- NOTE | 2021-01-10 10:56 | IPN ---
PROGRESS NOTE DATE: 01/10/2021 SUBJECTIVE: Ishan is stable. He is on [facility]. Per Physical Therapy he did not pass his own safety evaluation. He needs short-term rehab. We will put him on ALC level of care today. OBJECTIVE: VITAL SIGNS: His vitals are stable. His heart rate is in the 90s. LUNGS: Clear. HEART: Regular rhythm. ABDOMEN: Soft, nontender. EXTREMITIES: No peripheral edema. LABORATORY DATA: Electrolytes were unremarkable. Potassium is 3.9, BUN 12, creatinine is 0.75. Digoxin level is 1.0. IMPRESSION: 1. Patient is stable for ALC level of care. Needs short-term rehab before going home.
[2021-01-10] MEDS: TRELEGY ELLIPTA INH SCH (19:29)
[2021-01-10] MEDS: MONTELUKAST 10 MG TAB PO SCH (20:50)
[2021-01-11 06:00] VITALS: BP 107/70
[2021-01-11 06:14] LABS: BLOOD UREA NITROGEN 13 MG/DL (7-18); CALCIUM LEVEL 8.2 MG/DL (8.8-10.2); CARBON DIOXIDE LEVEL 31 MEQ/L (21-32); CHLORIDE LEVEL 107 MEQ/L (98-107); CREATININE FOR GFR 0.78 MG/DL (0.70-1.30); GLOMERULAR FILTRATION RATE > 60.0 (>49); GLUCOSE, FASTING 81 MG/DL (70-100); POTASSIUM SERUM 4.1 MEQ/L (3.5-5.1); SODIUM LEVEL 140 MEQ/L (136-145)
[2021-01-11] MEDS: IPRATROPIUM 0.02% SOLN 0.5MG 2.5ML NEB INH SCH ×4 (07:08→19:10)
[2021-01-11] MEDS: MIRALAX *UNIT DOSE* 17GM PACKET PO SCH ×2 (09:27→20:16)
[2021-01-11] MEDS: SENOKOT S TAB PO SCH ×2 (09:28→20:16)
[2021-01-11] MEDS: SPIRONOLACTONE 25 MG TAB PO SCH (09:28)
[2021-01-11] MEDS: FEXOFENADINE 60 MG TAB PO SCH (09:28)
[2021-01-11] MEDS: FINASTERIDE 5 MG TAB PO SCH (09:28)
[2021-01-11] MEDS: SERTRALINE HCL 25 MG TABLET PO SCH (09:29)
[2021-01-11] MEDS: CALCIUM/VITAMIN D 500 MG TAB PO SCH ×3 (09:29→18:13)
[2021-01-11] MEDS: diltiaZEM **CD** 180 MG CAP PO SCH (09:29)
[2021-01-11] MEDS: DIGOXIN 0.25 MG TAB PO SCH (09:29)
[2021-01-11] MEDS: OMEPRAZOLE 20 MG CAP PO SCH (09:29)
[2021-01-11] MEDS: TAMSULOSIN 0.4 MG CAP PO SCH (09:30)
[2021-01-11] MEDS: MULTIVITAMINS/MINERALS THERAP 1 TAB PO SCH (09:30)
[2021-01-11] MEDS: AZITHROMYCIN 250MG TABLET PO SCH (09:30)
[2021-01-11] MEDS: FUROSEMIDE 40 MG TAB PO SCH (09:30)
[2021-01-11] MEDS: DIGOXIN 0.125 MG TAB PO SCH (09:30)
[2021-01-11] MEDS: FOLIC ACID 1 MG TAB PO SCH (09:30)
[2021-01-11] MEDS: APIXABAN 5 MG TAB (ELIQUIS) PO SCH ×2 (09:30→20:16)
[2021-01-11] MEDS: PERCOCET 5MG/325MG TAB PO PRN ×2 (09:31→18:14)
[2021-01-11] MEDS: TRELEGY ELLIPTA INH SCH (19:10)
[2021-01-11] MEDS: MONTELUKAST 10 MG TAB PO SCH (20:16)
[2021-01-12 06:50] VITALS: BP 139/78
[2021-01-12] MEDS: PERCOCET 5MG/325MG TAB PO PRN ×2 (06:53→17:12)
[2021-01-12] MEDS: IPRATROPIUM 0.02% SOLN 0.5MG 2.5ML NEB INH SCH ×4 (07:31→20:19)
[2021-01-12] MEDS: MIRALAX *UNIT DOSE* 17GM PACKET PO SCH ×2 (08:59→21:02)
[2021-01-12] MEDS: FEXOFENADINE 60 MG TAB PO SCH (08:59)
[2021-01-12] MEDS: OMEPRAZOLE 20 MG CAP PO SCH (08:59)
[2021-01-12] MEDS: diltiaZEM **CD** 180 MG CAP PO SCH (08:59)
[2021-01-12] MEDS: TAMSULOSIN 0.4 MG CAP PO SCH (08:59)
[2021-01-12] MEDS: SENOKOT S TAB PO SCH ×2 (09:00→21:02)
[2021-01-12] MEDS: MULTIVITAMINS/MINERALS THERAP 1 TAB PO SCH (09:00)
[2021-01-12] MEDS: FINASTERIDE 5 MG TAB PO SCH (09:00)
[2021-01-12] MEDS: DIGOXIN 0.25 MG TAB PO SCH (09:00)
[2021-01-12] MEDS: SPIRONOLACTONE 25 MG TAB PO SCH (09:00)
[2021-01-12] MEDS: DIGOXIN 0.125 MG TAB PO SCH (09:00)
[2021-01-12] MEDS: CALCIUM/VITAMIN D 500 MG TAB PO SCH ×3 (09:00→17:11)
[2021-01-12] MEDS: APIXABAN 5 MG TAB (ELIQUIS) PO SCH ×2 (09:01→21:02)
[2021-01-12] MEDS: AZITHROMYCIN 250MG TABLET PO SCH (09:01)
[2021-01-12] MEDS: FUROSEMIDE 40 MG TAB PO SCH (09:01)
[2021-01-12] MEDS: SERTRALINE HCL 25 MG TABLET PO SCH (09:01)
[2021-01-12] MEDS: FOLIC ACID 1 MG TAB PO SCH (09:01)
[2021-01-12] MEDS: TRELEGY ELLIPTA INH SCH (20:19)
[2021-01-12] MEDS: MONTELUKAST 10 MG TAB PO SCH (21:02)
[2021-01-13 06:00] VITALS: BP 110/72
[2021-01-13] MEDS: IPRATROPIUM 0.02% SOLN 0.5MG 2.5ML NEB INH SCH ×2 (07:48→11:50)
[2021-01-13] MEDS: SENOKOT S TAB PO SCH ×2 (08:42→21:00)
[2021-01-13] MEDS: MIRALAX *UNIT DOSE* 17GM PACKET PO SCH ×2 (08:42→20:59)
[2021-01-13] MEDS: AZITHROMYCIN 250MG TABLET PO SCH (08:42)
[2021-01-13] MEDS: SPIRONOLACTONE 25 MG TAB PO SCH (08:43)
[2021-01-13] MEDS: SERTRALINE HCL 25 MG TABLET PO SCH (08:43)
[2021-01-13] MEDS: FINASTERIDE 5 MG TAB PO SCH (08:43)
[2021-01-13] MEDS: DIGOXIN 0.25 MG TAB PO SCH (08:43)
[2021-01-13] MEDS: FEXOFENADINE 60 MG TAB PO SCH (08:43)
[2021-01-13] MEDS: diltiaZEM **CD** 180 MG CAP PO SCH (08:43)
[2021-01-13] MEDS: APIXABAN 5 MG TAB (ELIQUIS) PO SCH ×2 (08:44→21:00)
[2021-01-13] MEDS: CALCIUM/VITAMIN D 500 MG TAB PO SCH ×3 (08:44→17:21)
[2021-01-13] MEDS: MULTIVITAMINS/MINERALS THERAP 1 TAB PO SCH (08:44)
[2021-01-13] MEDS: TAMSULOSIN 0.4 MG CAP PO SCH (08:44)
[2021-01-13] MEDS: FOLIC ACID 1 MG TAB PO SCH (08:44)
[2021-01-13] MEDS: FUROSEMIDE 40 MG TAB PO SCH (08:44)
[2021-01-13] MEDS: DIGOXIN 0.125 MG TAB PO SCH (08:44)
[2021-01-13] MEDS: OMEPRAZOLE 20 MG CAP PO SCH (08:44)
[2021-01-13] MEDS: PERCOCET 5MG/325MG TAB PO PRN ×2 (08:45→17:22)
[2021-01-13] MEDS: MONTELUKAST 10 MG TAB PO SCH (20:59)
[2021-01-13] MEDS: TRELEGY ELLIPTA INH SCH (21:00)
[2021-01-13 22:00] VITALS: BP 116/82
[2021-01-14 06:21] VITALS: BP 139/72
[2021-01-14] MEDS: MIRALAX *UNIT DOSE* 17GM PACKET PO SCH ×2 (09:00→20:29)
[2021-01-14] MEDS: FINASTERIDE 5 MG TAB PO SCH (09:17)
[2021-01-14] MEDS: SENOKOT S TAB PO SCH ×2 (09:17→20:29)
[2021-01-14] MEDS: FEXOFENADINE 60 MG TAB PO SCH (09:17)
[2021-01-14] MEDS: SERTRALINE HCL 25 MG TABLET PO SCH (09:17)
[2021-01-14] MEDS: SPIRONOLACTONE 25 MG TAB PO SCH (09:17)
[2021-01-14] MEDS: diltiaZEM **CD** 180 MG CAP PO SCH (09:18)
[2021-01-14] MEDS: DIGOXIN 0.125 MG TAB PO SCH (09:19)
[2021-01-14] MEDS: FOLIC ACID 1 MG TAB PO SCH (09:19)
[2021-01-14] MEDS: AZITHROMYCIN 250MG TABLET PO SCH (09:19)
[2021-01-14] MEDS: FUROSEMIDE 40 MG TAB PO SCH (09:19)
[2021-01-14] MEDS: APIXABAN 5 MG TAB (ELIQUIS) PO SCH ×2 (09:20→20:27)
[2021-01-14] MEDS: TAMSULOSIN 0.4 MG CAP PO SCH (09:20)
[2021-01-14] MEDS: CALCIUM/VITAMIN D 500 MG TAB PO SCH ×3 (09:20→18:29)
[2021-01-14] MEDS: MULTIVITAMINS/MINERALS THERAP 1 TAB PO SCH (09:20)
[2021-01-14] MEDS: DIGOXIN 0.25 MG TAB PO SCH (09:20)
[2021-01-14] MEDS: OMEPRAZOLE 20 MG CAP PO SCH (09:21)
[2021-01-14] MEDS: PERCOCET 5MG/325MG TAB PO PRN (14:01)
[2021-01-14] MEDS: MONTELUKAST 10 MG TAB PO SCH (20:27)
[2021-01-14] MEDS: TRELEGY ELLIPTA INH SCH (21:00)
[2021-01-15 06:00] VITALS: BP 122/73
[2021-01-15] MEDS: PERCOCET 5MG/325MG TAB PO PRN ×2 (07:01→20:33)
[2021-01-15] MEDS: MIRALAX *UNIT DOSE* 17GM PACKET PO SCH ×2 (09:00→20:33)
[2021-01-15] MEDS: FEXOFENADINE 60 MG TAB PO SCH (09:58)
[2021-01-15] MEDS: SPIRONOLACTONE 25 MG TAB PO SCH (09:58)
[2021-01-15] MEDS: MULTIVITAMINS/MINERALS THERAP 1 TAB PO SCH (09:58)
[2021-01-15] MEDS: CALCIUM/VITAMIN D 500 MG TAB PO SCH ×3 (09:58→17:54)
[2021-01-15] MEDS: OMEPRAZOLE 20 MG CAP PO SCH (09:58)
[2021-01-15] MEDS: TAMSULOSIN 0.4 MG CAP PO SCH (09:58)
[2021-01-15] MEDS: FOLIC ACID 1 MG TAB PO SCH (09:58)
[2021-01-15] MEDS: AZITHROMYCIN 250MG TABLET PO SCH (09:58)
[2021-01-15] MEDS: APIXABAN 5 MG TAB (ELIQUIS) PO SCH ×2 (09:59→20:33)
[2021-01-15] MEDS: FUROSEMIDE 40 MG TAB PO SCH (09:59)
[2021-01-15] MEDS: FINASTERIDE 5 MG TAB PO SCH (09:59)
[2021-01-15] MEDS: SERTRALINE HCL 25 MG TABLET PO SCH (09:59)
[2021-01-15] MEDS: SENOKOT S TAB PO SCH ×2 (10:00→20:33)
[2021-01-15] MEDS: DIGOXIN 0.125 MG TAB PO SCH (10:03)
[2021-01-15] MEDS: DIGOXIN 0.25 MG TAB PO SCH (10:03)
[2021-01-15] MEDS: diltiaZEM **CD** 180 MG CAP PO SCH (10:04)
[2021-01-15] MEDS: TRELEGY ELLIPTA INH SCH (19:54)
[2021-01-15] MEDS: MONTELUKAST 10 MG TAB PO SCH (20:33)
[2021-01-16 06:00] VITALS: BP 111/74
[2021-01-16] MEDS: MIRALAX *UNIT DOSE* 17GM PACKET PO SCH ×2 (09:00→20:45)
[2021-01-16] MEDS: SENOKOT S TAB PO SCH ×2 (09:00→20:45)
[2021-01-16] MEDS: OMEPRAZOLE 20 MG CAP PO SCH (09:15)
[2021-01-16] MEDS: FEXOFENADINE 60 MG TAB PO SCH (09:16)
[2021-01-16] MEDS: FUROSEMIDE 40 MG TAB PO SCH (09:16)
[2021-01-16] MEDS: APIXABAN 5 MG TAB (ELIQUIS) PO SCH ×2 (09:16→20:44)
[2021-01-16] MEDS: CALCIUM/VITAMIN D 500 MG TAB PO SCH ×3 (09:16→18:36)
[2021-01-16] MEDS: MULTIVITAMINS/MINERALS THERAP 1 TAB PO SCH (09:16)
[2021-01-16] MEDS: FOLIC ACID 1 MG TAB PO SCH (09:16)
[2021-01-16] MEDS: TAMSULOSIN 0.4 MG CAP PO SCH (09:16)
[2021-01-16] MEDS: AZITHROMYCIN 250MG TABLET PO SCH (09:16)
[2021-01-16] MEDS: FINASTERIDE 5 MG TAB PO SCH (09:16)
[2021-01-16] MEDS: DIGOXIN 0.25 MG TAB PO SCH (09:17)
[2021-01-16] MEDS: SPIRONOLACTONE 25 MG TAB PO SCH (09:17)
[2021-01-16] MEDS: diltiaZEM **CD** 180 MG CAP PO SCH (09:17)
[2021-01-16] MEDS: DIGOXIN 0.125 MG TAB PO SCH (09:17)
[2021-01-16] MEDS: SERTRALINE HCL 25 MG TABLET PO SCH (09:18)
[2021-01-16] MEDS: PERCOCET 5MG/325MG TAB PO PRN ×2 (09:24→19:01)
[2021-01-16] MEDS: TRELEGY ELLIPTA INH SCH (19:57)
[2021-01-16] MEDS: MONTELUKAST 10 MG TAB PO SCH (20:44)
[2021-01-16 22:00] VITALS: BP 119/65
[2021-01-17] MEDS: PERCOCET 5MG/325MG TAB PO PRN ×3 (05:09→17:42)
[2021-01-17 06:00] VITALS: BP 123/75
[2021-01-17] MEDS: SPIRONOLACTONE 25 MG TAB PO SCH (08:52)
[2021-01-17] MEDS: CALCIUM/VITAMIN D 500 MG TAB PO SCH ×3 (08:52→17:41)
[2021-01-17] MEDS: FEXOFENADINE 60 MG TAB PO SCH (08:52)
[2021-01-17] MEDS: FUROSEMIDE 40 MG TAB PO SCH (08:52)
[2021-01-17] MEDS: SERTRALINE HCL 25 MG TABLET PO SCH (08:52)
[2021-01-17] MEDS: MULTIVITAMINS/MINERALS THERAP 1 TAB PO SCH (08:52)
[2021-01-17] MEDS: APIXABAN 5 MG TAB (ELIQUIS) PO SCH ×2 (08:52→20:22)
[2021-01-17] MEDS: FOLIC ACID 1 MG TAB PO SCH (08:52)
[2021-01-17] MEDS: OMEPRAZOLE 20 MG CAP PO SCH (08:52)
[2021-01-17] MEDS: DIGOXIN 0.25 MG TAB PO SCH (08:53)
[2021-01-17] MEDS: AZITHROMYCIN 250MG TABLET PO SCH (08:53)
[2021-01-17] MEDS: diltiaZEM **CD** 180 MG CAP PO SCH (08:53)
[2021-01-17] MEDS: FINASTERIDE 5 MG TAB PO SCH (08:53)
[2021-01-17] MEDS: TAMSULOSIN 0.4 MG CAP PO SCH (08:53)
[2021-01-17] MEDS: MIRALAX *UNIT DOSE* 17GM PACKET PO SCH ×2 (08:54→20:22)
[2021-01-17] MEDS: SENOKOT S TAB PO SCH ×2 (08:54→20:22)
[2021-01-17] MEDS: DIGOXIN 0.125 MG TAB PO SCH (08:54)
--- NOTE | 2021-01-17 13:03 | IPNPDOC ---
Text Note Date of Service The patient was seen on 01/17/21. NOTE Subjective: Patient is a 65-year-old male who initially presented to the hospital on 12/31/2020 after falling. Patient had a right intertrochanteric fracture of his hip. Patient was made ALC status 1 week ago. Patient continues to work with therapy and is getting closer to being able to be discharged home with services. Patient does not have any complaints at this time is feeling otherwise well. Review of systems: General: Patient denies fevers HEENT: Patient denies headaches Cardiovascular: Patient denies chest pain Respiratory: Patient denies shortness of breath, cough GI: Patient denies abdominal pain, nausea, vomiting, diarrhea : Patient denies increased frequency or pain with urination Extremities: Patient denies swelling or pain in extremities Neurological: Patient denies numbness or tingling in legs Physical exam: Vitals: See below General: Alert and oriented male patient who was sitting up in bed when I walked in. Patient not appear to be in any acute distress. HEENT: Normocephalic, atraumatic, moist mucous membranes. Neck: No lymphadenopathy or thyromegaly Cardiac: Regular rate and rhythm, no murmurs, normal S1, normal S2 Pulm: Clear to auscultation bilaterally. No wheezes, rhonchi, rales Abd: Nondistended, nontender to palpation, normal bowel sounds Ext: No edema bilateral lower extremities Labs: See below Imaging: No new imaging has been performed Assessment/plan: 65-year-old male who presented with right intertrochanteric fracture of the hip who is still working with physical therapy. 1. Right intertrochanteric fracture. Patient had surgery to fix this. Patient will continue work with physical therapy. 2. Osteoporosis. Continue the treatment. 3. Presyncope. This is resolved. 4. Alcohol abuse. Patient is not having any symptoms of withdrawal at this time. 5. Longstanding persistent atrial fibrillation. Continue 2000 and metoprolol. 6. COPD. Continue his nebulizer treatments. 7. Hypertension. Continue home medications. 8. BPH. Continue home medications. 9. GERD. PPI. 10. Class I obesity which is complicating the patient's care. DVT Prophylaxis: Full anticoagulation with Eliquis Disposition: Pending physical therapy patient is currently ALC status. VS,Fishbone, I+O VS, Fishbone, I+O Vital Signs Date Time Temp Pulse Resp B/P (MAP) Pulse Ox O2 Delivery O2 Flow Rate FiO2 01/17/21 12:20 18 Nasal Cannula 2.0 01/17/21 08:54 77 01/17/21 08:53 110/60 01/17/21 06:00 97.8 96 I&O- Last 24 Hours up to 6 AM 01/17/21 06:00 Intake Total 860 ml Output Total 975 ml Balance -115 ml HIEU KING DO Jan 17, 2021 13:03
[2021-01-17] MEDS: TRELEGY ELLIPTA INH SCH (19:42)
[2021-01-17] MEDS: MONTELUKAST 10 MG TAB PO SCH (20:22)
[2021-01-18] MEDS: IPRATROPIUM 0.02% SOLN 0.5MG 2.5ML NEB INH PRN (05:17)
[2021-01-18 06:00] VITALS: BP 120/67
[2021-01-18] MEDS: MIRALAX *UNIT DOSE* 17GM PACKET PO SCH ×3 (09:00→20:12)
[2021-01-18] MEDS: SENOKOT S TAB PO SCH ×2 (09:00→20:13)
[2021-01-18] MEDS: DIGOXIN 0.25 MG TAB PO SCH (09:14)
[2021-01-18] MEDS: PERCOCET 5MG/325MG TAB PO PRN ×3 (09:15→23:01)
[2021-01-18] MEDS: FUROSEMIDE 40 MG TAB PO SCH (09:15)
[2021-01-18] MEDS: FOLIC ACID 1 MG TAB PO SCH (09:15)
[2021-01-18] MEDS: MULTIVITAMINS/MINERALS THERAP 1 TAB PO SCH (09:15)
[2021-01-18] MEDS: OMEPRAZOLE 20 MG CAP PO SCH (09:15)
[2021-01-18] MEDS: SERTRALINE HCL 25 MG TABLET PO SCH (09:16)
[2021-01-18] MEDS: SPIRONOLACTONE 25 MG TAB PO SCH (09:16)
[2021-01-18] MEDS: CALCIUM/VITAMIN D 500 MG TAB PO SCH ×3 (09:16→16:51)
[2021-01-18] MEDS: DIGOXIN 0.125 MG TAB PO SCH (09:16)
[2021-01-18] MEDS: FINASTERIDE 5 MG TAB PO SCH (09:16)
[2021-01-18] MEDS: TAMSULOSIN 0.4 MG CAP PO SCH (09:17)
[2021-01-18] MEDS: AZITHROMYCIN 250MG TABLET PO SCH (09:17)
[2021-01-18] MEDS: APIXABAN 5 MG TAB (ELIQUIS) PO SCH ×2 (09:17→20:12)
[2021-01-18] MEDS: diltiaZEM **CD** 180 MG CAP PO SCH (09:17)
[2021-01-18] MEDS: FEXOFENADINE 60 MG TAB PO SCH (09:17)
[2021-01-18] MEDS: TRELEGY ELLIPTA INH SCH (19:42)
[2021-01-18] MEDS: MONTELUKAST 10 MG TAB PO SCH (20:12)
[2021-01-19 06:00] VITALS: BP 102/63
[2021-01-19] MEDS: TAMSULOSIN 0.4 MG CAP PO SCH (08:55)
[2021-01-19] MEDS: PERCOCET 5MG/325MG TAB PO PRN ×2 (08:55→18:36)
[2021-01-19] MEDS: MULTIVITAMINS/MINERALS THERAP 1 TAB PO SCH (08:56)
[2021-01-19] MEDS: FUROSEMIDE 40 MG TAB PO SCH (08:56)
[2021-01-19] MEDS: SPIRONOLACTONE 25 MG TAB PO SCH (08:56)
[2021-01-19] MEDS: FOLIC ACID 1 MG TAB PO SCH (08:56)
[2021-01-19] MEDS: APIXABAN 5 MG TAB (ELIQUIS) PO SCH ×2 (08:56→21:28)
[2021-01-19] MEDS: MIRALAX *UNIT DOSE* 17GM PACKET PO SCH ×2 (08:56→21:28)
[2021-01-19] MEDS: AZITHROMYCIN 250MG TABLET PO SCH (08:56)
[2021-01-19] MEDS: CALCIUM/VITAMIN D 500 MG TAB PO SCH ×3 (08:56→18:35)
[2021-01-19] MEDS: FINASTERIDE 5 MG TAB PO SCH (08:56)
[2021-01-19] MEDS: SENOKOT S TAB PO SCH ×2 (08:57→21:28)
[2021-01-19] MEDS: OMEPRAZOLE 20 MG CAP PO SCH (08:57)
[2021-01-19] MEDS: FEXOFENADINE 60 MG TAB PO SCH (08:57)
[2021-01-19] MEDS: SERTRALINE HCL 25 MG TABLET PO SCH (08:57)
[2021-01-19] MEDS: DIGOXIN 0.25 MG TAB PO SCH (09:01)
[2021-01-19] MEDS: DIGOXIN 0.125 MG TAB PO SCH (09:01)
[2021-01-19] MEDS: diltiaZEM **CD** 180 MG CAP PO SCH (09:01)
[2021-01-19] MEDS: TRELEGY ELLIPTA INH SCH (19:49)
[2021-01-19] MEDS: LEVALBUTEROL HFA 45MCG/ACT 15 GM INHALER INH PRN (19:50)
[2021-01-19] MEDS: MONTELUKAST 10 MG TAB PO SCH (21:28)
[2021-01-20 06:00] VITALS: BP 135/88
[2021-01-20] MEDS: MIRALAX *UNIT DOSE* 17GM PACKET PO SCH ×2 (09:00→20:43)
[2021-01-20] MEDS: SENOKOT S TAB PO SCH ×2 (09:00→20:42)
[2021-01-20] MEDS: FUROSEMIDE 40 MG TAB PO SCH (09:56)
[2021-01-20] MEDS: FEXOFENADINE 60 MG TAB PO SCH (09:56)
[2021-01-20] MEDS: SERTRALINE HCL 25 MG TABLET PO SCH (09:57)
[2021-01-20] MEDS: OMEPRAZOLE 20 MG CAP PO SCH (09:57)
[2021-01-20] MEDS: DIGOXIN 0.25 MG TAB PO SCH (09:57)
[2021-01-20] MEDS: PERCOCET 5MG/325MG TAB PO PRN ×2 (09:57→20:43)
[2021-01-20] MEDS: CALCIUM/VITAMIN D 500 MG TAB PO SCH ×3 (09:58→17:24)
[2021-01-20] MEDS: FINASTERIDE 5 MG TAB PO SCH (09:58)
[2021-01-20] MEDS: DIGOXIN 0.125 MG TAB PO SCH (09:58)
[2021-01-20] MEDS: FOLIC ACID 1 MG TAB PO SCH (09:58)
[2021-01-20] MEDS: SPIRONOLACTONE 25 MG TAB PO SCH (09:58)
[2021-01-20] MEDS: AZITHROMYCIN 250MG TABLET PO SCH (09:58)
[2021-01-20] MEDS: MULTIVITAMINS/MINERALS THERAP 1 TAB PO SCH (09:58)
[2021-01-20] MEDS: TAMSULOSIN 0.4 MG CAP PO SCH (09:58)
[2021-01-20] MEDS: APIXABAN 5 MG TAB (ELIQUIS) PO SCH ×2 (09:58→20:43)
[2021-01-20] MEDS: diltiaZEM **CD** 180 MG CAP PO SCH (09:59)
[2021-01-20] MEDS: TRELEGY ELLIPTA INH SCH (19:45)
[2021-01-20] MEDS: MONTELUKAST 10 MG TAB PO SCH (20:43)
[2021-01-21 06:00] VITALS: BP 118/75
[2021-01-21] MEDS: SPIRONOLACTONE 25 MG TAB PO SCH (08:59)
[2021-01-21] MEDS: FINASTERIDE 5 MG TAB PO SCH (09:00)
[2021-01-21] MEDS: APIXABAN 5 MG TAB (ELIQUIS) PO SCH ×2 (09:00→20:59)
[2021-01-21] MEDS: AZITHROMYCIN 250MG TABLET PO SCH (09:00)
[2021-01-21] MEDS: FOLIC ACID 1 MG TAB PO SCH (09:00)
[2021-01-21] MEDS: SERTRALINE HCL 25 MG TABLET PO SCH (09:00)
[2021-01-21] MEDS: FEXOFENADINE 60 MG TAB PO SCH (09:00)
[2021-01-21] MEDS: TAMSULOSIN 0.4 MG CAP PO SCH (09:00)
[2021-01-21] MEDS: SENOKOT S TAB PO SCH ×2 (09:00→21:00)
[2021-01-21] MEDS: MULTIVITAMINS/MINERALS THERAP 1 TAB PO SCH (09:00)
[2021-01-21] MEDS: CALCIUM/VITAMIN D 500 MG TAB PO SCH ×3 (09:00→16:53)
[2021-01-21] MEDS: MIRALAX *UNIT DOSE* 17GM PACKET PO SCH ×2 (09:00→21:00)
[2021-01-21] MEDS: FUROSEMIDE 40 MG TAB PO SCH (09:01)
[2021-01-21] MEDS: OMEPRAZOLE 20 MG CAP PO SCH (09:01)
[2021-01-21] MEDS: diltiaZEM **CD** 180 MG CAP PO SCH (09:02)
[2021-01-21] MEDS: PERCOCET 5MG/325MG TAB PO PRN ×2 (09:02→21:00)
[2021-01-21] MEDS: DIGOXIN 0.125 MG TAB PO SCH (09:03)
[2021-01-21] MEDS: DIGOXIN 0.25 MG TAB PO SCH (09:03)
[2021-01-21] MEDS: IPRATROPIUM 0.02% SOLN 0.5MG 2.5ML NEB INH PRN ×2 (09:14→19:20)
[2021-01-21] MEDS ORDERED: FUROSEMIDE 80 MG TAB PO ONE (09:25)
[2021-01-21 10:06] LABS: HEMATOCRIT 36.6 % (42.0-52.0); HEMOGLOBIN 11.7 g/dl (13.5-17.5); PLATELET COUNT, AUTOMATED 376 10^3/uL (150-450); RED BLOOD COUNT 3.66 10^6/uL (4.30-6.10); WHITE BLOOD COUNT 7.5 10^3/uL (4.0-10.0)
[2021-01-21 10:35] LABS: BLOOD UREA NITROGEN 9 MG/DL (7-18); CALCIUM LEVEL 8.6 MG/DL (8.8-10.2); CARBON DIOXIDE LEVEL 30 MEQ/L (21-32); CHLORIDE LEVEL 103 MEQ/L (98-107); GLOMERULAR FILTRATION RATE > 60.0 (>49); GLUCOSE, FASTING 121 MG/DL (70-100); NT-PRO BNP 3323 PG/ML (<125); POTASSIUM SERUM 4.5 MEQ/L (3.5-5.1); SODIUM LEVEL 140 MEQ/L (136-145)
--- NOTE | 2021-01-21 16:43 | IPNPDOC ---
Subjective Date Seen The patient was seen on 01/21/21. Subjective Chief Complaint/HPI Postop right intertrochanteric fracture 01/01/2021. Awaiting discharge home. General: Denies: ROS Unobtainable, Chills, Night Sweats, Fatigue, Malaise, Normal Appetite, Other Symptoms Constitutional: Denies: Chills, Fever, Malaise, Night Sweats, Weakness, Fatigue, Weight Loss, Lethargy, Other Eyes: Denies: Pain, Vision change, Conjunctivae inflammation, Eyelid inflammation, Redness, Other ENT: Denies: Head Aches, Ear Pain, Dysphagia, Sinus Congestion, Post Nasal Drip, Sore Throat, Epistaxis, Other Symptoms Skin: Denies: Rash, Lesions, Jaundice, Bruising, Itching, Dry, Breakdown, Nail Changes, Other Pulmonary: Denies: Dyspnea, Cough, Pleuritic Chest Pain, Other Symptoms Gastrointestinal: Denies: Nausea, Vomiting, Abdominal Pain, Diarrhea, Constipation, Melena, Hematochezia, Other Symptoms Genitourinary: Denies: Dysuria, Frequency, Incontinence, Hematuria, Retention, Other Symptoms Hematologic: Denies: Bruising, Bleeding Excessively, Petecchia, Purpura, Enlarged Lymph Nodes, Other Hematologic Endocrine: Denies: Polydipsia, Polyphagia, Polyuria, Heat Intolerance, Cold Intolerance, Other Endocrine Sx Musculoskeletal: Denies: Neck Pain, Back Pain, Shoulder Pain, Arm Pain, Hand Pain, Leg Pain, Foot Pain, Joint Pain, Muscle Pain, Spasms, Other Symptoms Neurological: Denies: Weakness, Numbness, Incoordination, Change in speech, Confusion, Seizures, Other Symptoms Psych: Denies: Mood Normal, Anxiety, Depression, Memory Issues, Thoughts of Self Harm, Anger, Thoughts of Harming Other, Other Psych Objective Physical Examination General Exam: Positive: Alert, Cooperative (laying in his bedroom and in the room accompanied by the nurse), No Acute Distress; Negative: Mild Distress, Moderate Distress, Severe Distress, Other Eye Exam: Positive: Conjunctiva & lids normal ENT Exam: Positive: Atraumatic, Mucous membr. moist/pink Neck Exam: Positive: Supple Chest Exam: Positive: Clear to auscultation, Normal air movement Heart Exam: Positive: Rate Normal, Normal S1, Normal S2 Abdomen Exam: Positive: Normal bowel sounds, Soft Extremity Exam: Positive: Tenderness (around the surgical site is right hip. There is a foam dressing that is clean dry and intact); Negative: Edema Skin Exam: Positive: Nl turgor and temperature; Negative: Rash, Breakdown, Lesion, Pruritus, Other skin issue Neuro Exam: Positive: Normal Tone; Negative: Normal Gait (he was able to demonstrate using his walker for about 5 feet, but that he had to stop) Psych Exam: Positive: Mood NL, Memory Intact; Negative: Mental status NL, Anxiety, Oriented x 3, Other Other physical findings Patient resting comfortably in bed. Incisions clean and dry and healed Able to straight leg raise at about 30 degrees Range of motion of the knee 0 to 90 degrees Good active ankle range of motion Denies any sensory deficits. Good pulses distally. Assessment /Plan Plan/VTE VTE Prophylaxis Ordered?: Yes Plan Diet: Continue Current Activity: Encourage Ambulation Therapy: PT, OT, Home Safety Eval Pt and Family Services: Home Care Weightbearing as tolerated right hip. Continue to mobilize with assistive aids as needed. Follow-up with orthopedics after he is discharged. VS, I&O, 24H, [facility] Vital Signs/I&O Vital Signs Date Time Temp Pulse Resp B/P (MAP) Pulse Ox O2 Delivery O2 Flow Rate FiO2 01/21/21 11:28 18 01/21/21 09:03 83 01/21/21 09:02 138/79 01/21/21 09:00 2.0 01/21/21 06:00 99.1 93 Nasal Cannula I&O- Last 24 Hours up to 6 AM 01/21/21 06:00 Intake Total 1400 ml Output Total 1300 ml Balance 100 ml Laboratory Data 24H LABS Laboratory Tests 2 01/21/21 09:38: Nucleated Red Blood Cells % (auto) 0.0, Anion Gap 7L, Glomerular Filtration Rate > 60.0, Calcium Level 8.6L, TF-Iyq-O-Type Natriuretic Peptide 3323H CBC/BMP Laboratory Tests 01/21/21 09:38 JEAN-CLAUDE EUCEDA MD Jan 21, 2021 16:42
[2021-01-21] MEDS: TRELEGY ELLIPTA INH SCH (19:20)
[2021-01-21] MEDS: MONTELUKAST 10 MG TAB PO SCH (20:59)
[2021-01-22 06:00] VITALS: BP 130/61
[2021-01-22] MEDS: FEXOFENADINE 60 MG TAB PO SCH (10:08)
[2021-01-22] MEDS: APIXABAN 5 MG TAB (ELIQUIS) PO SCH ×2 (10:08→20:35)
[2021-01-22] MEDS: SENOKOT S TAB PO SCH ×2 (10:08→20:29)
[2021-01-22] MEDS: MIRALAX *UNIT DOSE* 17GM PACKET PO SCH ×2 (10:08→20:29)
[2021-01-22] MEDS: SERTRALINE HCL 25 MG TABLET PO SCH (10:09)
[2021-01-22] MEDS: MULTIVITAMINS/MINERALS THERAP 1 TAB PO SCH (10:09)
[2021-01-22] MEDS: FOLIC ACID 1 MG TAB PO SCH (10:09)
[2021-01-22] MEDS: FINASTERIDE 5 MG TAB PO SCH (10:09)
[2021-01-22] MEDS: OMEPRAZOLE 20 MG CAP PO SCH (10:09)
[2021-01-22] MEDS: AZITHROMYCIN 250MG TABLET PO SCH (10:09)
--- NOTE | 2021-01-22 10:09 | IPN ---
PROGRESS NOTE DATE: 01/22/2021 SUBJECTIVE: Ishan had an episode of volume overload yesterday, became short of breath and he has gotten a little behind in his input/output. We did lab work. His BNP was 3300, I gave him an extra dose of Furosemide and his symptoms resolved. OBJECTIVE: No JVD. Lungs clear. Heart regular rate and rhythm. Abdomen soft, nontender. Trace peripheral edema. ASSESSMENT: Congestive heart failure, this has resolved. PLAN: Apparently he is going home Sunday per nursing staff.
[2021-01-22] MEDS: TAMSULOSIN 0.4 MG CAP PO SCH (10:10)
[2021-01-22] MEDS: CALCIUM/VITAMIN D 500 MG TAB PO SCH ×3 (10:10→18:24)
[2021-01-22] MEDS: DIGOXIN 0.25 MG TAB PO SCH (10:12)
[2021-01-22] MEDS: diltiaZEM **CD** 180 MG CAP PO SCH (10:12)
[2021-01-22] MEDS: SPIRONOLACTONE 25 MG TAB PO SCH (10:12)
[2021-01-22] MEDS: FUROSEMIDE 40 MG TAB PO SCH (10:13)
[2021-01-22] MEDS: DIGOXIN 0.125 MG TAB PO SCH (10:13)
[2021-01-22] MEDS: PERCOCET 5MG/325MG TAB PO PRN ×2 (12:06→20:36)
[2021-01-22] MEDS: TRELEGY ELLIPTA INH SCH (19:32)
[2021-01-22] MEDS: IPRATROPIUM 0.02% SOLN 0.5MG 2.5ML NEB INH PRN (19:32)
[2021-01-22] MEDS: MONTELUKAST 10 MG TAB PO SCH (20:35)
[2021-01-23 06:00] VITALS: BP 122/75
[2021-01-23] MEDS: DIGOXIN 0.125 MG TAB PO SCH (09:00)
[2021-01-23] MEDS: MIRALAX *UNIT DOSE* 17GM PACKET PO SCH ×2 (10:25→21:00)
[2021-01-23] MEDS: FINASTERIDE 5 MG TAB PO SCH (10:25)
[2021-01-23] MEDS: FEXOFENADINE 60 MG TAB PO SCH (10:26)
[2021-01-23] MEDS: SENOKOT S TAB PO SCH ×2 (10:26→22:08)
[2021-01-23] MEDS: AZITHROMYCIN 250MG TABLET PO SCH (10:26)
[2021-01-23] MEDS: SPIRONOLACTONE 25 MG TAB PO SCH (10:26)
[2021-01-23] MEDS: FOLIC ACID 1 MG TAB PO SCH (10:26)
[2021-01-23] MEDS: TAMSULOSIN 0.4 MG CAP PO SCH (10:26)
[2021-01-23] MEDS: CALCIUM/VITAMIN D 500 MG TAB PO SCH ×3 (10:26→18:00)
[2021-01-23] MEDS: OMEPRAZOLE 20 MG CAP PO SCH (10:26)
[2021-01-23] MEDS: APIXABAN 5 MG TAB (ELIQUIS) PO SCH ×2 (10:27→22:07)
[2021-01-23] MEDS: SERTRALINE HCL 25 MG TABLET PO SCH (10:27)
[2021-01-23] MEDS: FUROSEMIDE 40 MG TAB PO SCH (10:27)
[2021-01-23] MEDS: MULTIVITAMINS/MINERALS THERAP 1 TAB PO SCH (10:27)
[2021-01-23] MEDS: PERCOCET 5MG/325MG TAB PO PRN ×2 (10:28→15:56)
[2021-01-23] MEDS: DIGOXIN 0.25 MG TAB PO SCH (10:30)
[2021-01-23] MEDS: diltiaZEM **CD** 180 MG CAP PO SCH (10:31)
[2021-01-23] MEDS: TRELEGY ELLIPTA INH SCH (19:30)
[2021-01-23] MEDS: MONTELUKAST 10 MG TAB PO SCH (22:08)
[2021-01-24 06:00] VITALS: BP 137/72
[2021-01-24] MEDS: MIRALAX *UNIT DOSE* 17GM PACKET PO SCH ×2 (09:00→20:13)
[2021-01-24] MEDS: SENOKOT S TAB PO SCH ×2 (09:15→19:54)
[2021-01-24] MEDS: DIGOXIN 0.125 MG TAB PO SCH (09:15)
[2021-01-24] MEDS: FEXOFENADINE 60 MG TAB PO SCH (09:16)
[2021-01-24] MEDS: AZITHROMYCIN 250MG TABLET PO SCH (09:16)
[2021-01-24] MEDS: diltiaZEM **CD** 180 MG CAP PO SCH (09:16)
[2021-01-24] MEDS: DIGOXIN 0.25 MG TAB PO SCH (09:17)
[2021-01-24] MEDS: SERTRALINE HCL 25 MG TABLET PO SCH (09:17)
[2021-01-24] MEDS: OMEPRAZOLE 20 MG CAP PO SCH (09:17)
[2021-01-24] MEDS: MULTIVITAMINS/MINERALS THERAP 1 TAB PO SCH (09:17)
[2021-01-24] MEDS: TAMSULOSIN 0.4 MG CAP PO SCH (09:17)
[2021-01-24] MEDS: APIXABAN 5 MG TAB (ELIQUIS) PO SCH ×2 (09:17→19:54)
[2021-01-24] MEDS: FOLIC ACID 1 MG TAB PO SCH (09:17)
[2021-01-24] MEDS: CALCIUM/VITAMIN D 500 MG TAB PO SCH ×3 (09:17→18:24)
[2021-01-24] MEDS: FUROSEMIDE 40 MG TAB PO SCH (09:17)
[2021-01-24] MEDS: FINASTERIDE 5 MG TAB PO SCH (09:18)
[2021-01-24] MEDS: SPIRONOLACTONE 25 MG TAB PO SCH (09:18)
[2021-01-24] MEDS: PERCOCET 5MG/325MG TAB PO PRN ×2 (09:19→15:59)
[2021-01-24] MEDS: MONTELUKAST 10 MG TAB PO SCH (19:54)
[2021-01-24] MEDS: TRELEGY ELLIPTA INH SCH (20:02)
--- NOTE | 2021-01-24 21:59 | REPVR ---
PROCEDURE INFORMATION: Exam: US Duplex Right Lower Extremity Veins, Limited Exam date and time: 01/24/2021 8:55 PM Age: 65 years old Clinical indication: Edema, localized; Lower extremity, right; Prior surgery; Surgery date: 1-6 months; Surgery type: RT hip surgery; Additional info: Reddness, pain, swelling TECHNIQUE: Imaging protocol: Real-time Duplex ultrasound of the Right Lower Extremity with 2-D bustillos scale, color Doppler flow and spectral waveform analysis with image documentation. Limited exam was focused on the right lower extremity veins. COMPARISON: CR Femur RIGHT 12/31/2020 8:19 PM FINDINGS: Right deep veins: Common femoral, femoral, proximal profunda femoral and popliteal veins are patent without thrombus. Normal Doppler waveforms. Normal compressibility and/or augmentation response. Right superficial veins: Saphenofemoral junction is patent without thrombus. Soft tissues: No abnormal focal fluid collection. IMPRESSION: No evidence of right lower extremity deep vein thrombosis. Electronically signed by: Miles Michel On 01/24/2021 21:59:15 PM
[2021-01-25 06:00] VITALS: BP 124/64
[2021-01-25] MEDS: MULTIVITAMINS/MINERALS THERAP 1 TAB PO SCH (08:33)
[2021-01-25] MEDS: FEXOFENADINE 60 MG TAB PO SCH (08:33)
[2021-01-25] MEDS: OMEPRAZOLE 20 MG CAP PO SCH (08:33)
[2021-01-25] MEDS: FINASTERIDE 5 MG TAB PO SCH (08:33)
[2021-01-25] MEDS: APIXABAN 5 MG TAB (ELIQUIS) PO SCH (08:33)
[2021-01-25] MEDS: SENOKOT S TAB PO SCH (08:33)
[2021-01-25] MEDS: SERTRALINE HCL 25 MG TABLET PO SCH (08:33)
[2021-01-25] MEDS: CALCIUM/VITAMIN D 500 MG TAB PO SCH ×2 (08:33→12:31)
[2021-01-25] MEDS: AZITHROMYCIN 250MG TABLET PO SCH (08:34)
[2021-01-25] MEDS: MIRALAX *UNIT DOSE* 17GM PACKET PO SCH (08:34)
[2021-01-25] MEDS: FUROSEMIDE 40 MG TAB PO SCH (08:34)
[2021-01-25] MEDS: FOLIC ACID 1 MG TAB PO SCH (08:34)
[2021-01-25] MEDS: SPIRONOLACTONE 25 MG TAB PO SCH (08:34)
[2021-01-25] MEDS: TAMSULOSIN 0.4 MG CAP PO SCH (08:34)
[2021-01-25] MEDS: PERCOCET 5MG/325MG TAB PO PRN (08:35)
[2021-01-25] MEDS: DIGOXIN 0.125 MG TAB PO SCH (08:36)
[2021-01-25 08:37] VITALS: BP 114/68
[2021-01-25] MEDS: diltiaZEM **CD** 180 MG CAP PO SCH (08:37)
[2021-01-25] MEDS: DIGOXIN 0.25 MG TAB PO SCH (08:37)
--- NOTE | 2021-01-25 11:35 | DS.PDOC ---
Discharge Summary General Date of Admission Dec 31, 2020 at 23:18 Discharge Summary PROCEDURES PERFORMED DURING STAY: [None]. ADMITTING DIAGNOSES: 1. . DISCHARGE DIAGNOSES: 1. . COMPLICATIONS/CHIEF COMPLAINT: Fracture, Intertrochanteric, R Femur. HISTORY OF PRESENT ILLNESS: . HOSPITAL COURSE: . DISCHARGE MEDICATIONS: Please see below. ALLERGIES: Please see below. PHYSICAL EXAMINATION ON DISCHARGE: VITAL SIGNS: Please see below. GENERAL: HEENT: NECK: CARDIOVASCULAR EXAMINATION: RESPIRATORY EXAMINATION: ABDOMINAL EXAMINATION: EXTREMITIES: SKIN: NEUROLOGICAL EXAMINATION: PSYCHIATRIC EXAMINATION: LABORATORY DATA: Please see below. IMAGING: PROGNOSIS: ACTIVITY: [As tolerated]. DIET: DISCHARGE PLAN: DISPOSITION: . DISCHARGE INSTRUCTIONS: 1. . ITEMS TO FOLLOWUP ON ON OUTPATIENT: 1. . DISCHARGE CONDITION: [Stable]. TIME SPENT ON DISCHARGE: minutes. Vital Signs/I&Os Vital Signs Date Time Temp Pulse Resp B/P (MAP) Pulse Ox O2 Delivery O2 Flow Rate FiO2 01/25/21 09:05 17 Nasal Cannula 01/25/21 09:00 2.0 01/25/21 08:37 78 01/25/21 08:37 114/68 01/25/21 06:00 97.6 95 I&O- Last 24 Hours up to 6 AM 01/25/21 06:00 Intake Total 1285 ml Output Total 900 ml Balance 385 ml Discharge Medications Scheduled Alfuzosin HCl (Alfuzosin HCl ER) 10 Mg Tab.er.24h, 10 MG PO DAILY, (Reported) Apixaban (Eliquis) 5 Mg Tablet, 5 MG PO BID, (Reported) Ashwagandha Root Extract (Ashwagandha Root Extract) 300 Mg Capsule, 300 MG PO DAILY, (Reported) Azithromycin (Azithromycin) 250 Mg Tablet, 250 MG PO DAILY, (Reported) Calcium Carbonate/Vitamin D3 (Calcium 500 mg-Vit D3 600 Unit) 1 Each Tablet, 1 EACH PO DAILY, (Reported) Cider Vinegar (Apple Cider Vinegar) 300 Mg Tablet, 300 MG PO DAILY, (Reported) Diltiazem HCl (Diltiazem 24Hr ER) 120 Mg Cap, 360 MG PO DAILY, (Reported) Docusate Sodium (Dok) 100 Mg Tablet, 100 MG PO DAILY, (Reported) Fexofenadine HCl (Fexofenadine HCl) 180 Mg Tab, 180 MG PO DAILY, (Reported) Finasteride (Finasteride) 5 Mg Tab, 5 MG PO DAILY, (Reported) Fluticasone/Umeclidin/Vilanter (Trelegy Ellipta 100-62.5-25) 1 Each Blst.w.dev, 1 PUFF INH QPM, (Reported) Furosemide (Furosemide) 40 Mg Tablet, 40 MG PO DAILY, (Reported) Levalbuterol HCl (Levalbuterol HCl) 0.63 Mg/3 Ml Vial.neb, 1 VIAL NEB QID, (Reported) Metoprolol Tartrate (Metoprolol Tartrate) 25 Mg Tablet, 25 MG PO DAILY, (Reported) Montelukast Sodium (Montelukast Sodium) 10 Mg Tablet, 10 MG PO QPM, (Reported) Omeprazole (Omeprazole) 40 Mg Cap, 40 MG PO DAILY, (Reported) Polyethylene Glycol 3350 (Miralax) 17 Gm Powd.pack, 1 PKT PO BID [place] Fruit/Zinc Picoli (Saw [place] 450 mg Capsule) 1 Each Capsule, 1 EACH PO DAILY, (Reported) Sennosides/Docusate Sodium (Senna Plus Tablet) 1 Each Tablet, 2 TAB PO BID Sertraline HCl (Sertraline HCl) 25 Mg Tablet, 25 MG PO DAILY, (Reported) takes with 50mg to equal 75mg Sertraline Hcl (Zoloft) 50 Mg Tab, 50 MG PO DAILY, (Reported) takes with 25mg to equal 75mg Spironolactone (Spironolactone) 25 Mg Tablet, 25 MG PO DAILY, (Reported) Tadalafil (Cialis) 5 Mg Tab, 5 MG PO DAILY, (Reported) Triamcinolone Acetonide (Nasacort) 55 Mcg/Act Spr, 2 SPRAYS NA QHS, (Reported) [tumeric] , 1 TAB PO DAILY, (Reported) Scheduled PRN Levalbuterol Hydrochloride (Xopenex Hfa) 15 Gm Hfa.aer.ad, 1 PUFF INH ASDIRECTED PRN for SHORTNESS OF BREATH, (Reported) Oxycodone/Acetaminophen (Oxycodone-Acetaminophen 5-325) 1 Each Tablet, 2 TAB PO Q6HP PRN for PAIN LEVEL 8-10 Allergies Coded Allergies: No Known Allergies (Verified Allergy, Unknown, 12/31/20) NAVEED MENDOSA MD Jan 25, 2021 11:35
[2021-01-25] MEDS ORDERED: FLUBLOK(EGG FREE)(QUAD)INFLUENZA VACC 0.5ML SYRINGE 18YRS & OLDER IM ONE (13:10)
[2021-01-25] MEDS ORDERED: CARD180C4 PO (13:53)
[2021-01-25] MEDS ORDERED: FOLI1TAB11 PO (13:53)
[2021-01-25] MEDS ORDERED: DIGO0.253 PO (13:53)
== END 2021-01-25 14:30 | disposition home health service (06) | DRG 481 ==
LOC: EDBD 18:42 → M ED 18:42 → M ED INP 23:18 → M PCU 01-01 00:46 → M MSPAV 01-02 22:52
PROVIDERS: ADMIT Internal Medicine; ATTEND Family Medicine
PROC: 0QS606Z Reposition Right Upper Femur with Intramedullary Internal Fixation Device, Open Approach (ICD-10-PCS; principal; 2021-01-01 08:34)
DX: S72.141A Displaced intertrochanteric fracture of right femur, initial encounter for closed fracture (principal); I48.11 Longstanding persistent atrial fibrillation; F10.139 Alcohol abuse with withdrawal, unspecified; W18.30XA Fall on same level, unspecified, initial encounter; R42 Dizziness and giddiness; I50.9 Heart failure, unspecified; M81.0 Age-related osteoporosis without current pathological fracture; R00.0 Tachycardia, unspecified; K21.9 Gastro-esophageal reflux disease without esophagitis; J44.9 Chronic obstructive pulmonary disease, unspecified; I10 Essential (primary) hypertension; N40.0 Benign prostatic hyperplasia without lower urinary tract symptoms; E66.9 Obesity, unspecified; Z79.01 Long term (current) use of anticoagulants; Z79.899 Other long term (current) drug therapy; Z20.822 Contact with and (suspected) exposure to COVID-19; Z68.30 Body mass index [BMI] 30.0-30.9, adult; Z86.010 Personal history of colon polyps; Z87.891 Personal history of nicotine dependence; Y92.9 Unspecified place or not applicable; Y93.9 Activity, unspecified; Y99.8 Other external cause status

== ENCOUNTER → 2021-02-01 | Outpatient (CLI) | payer OTHER ==
[~2021-02-01] MED LIST changes: +ALFU10TA3 PO; +APPL300T4 PO; +ASHW300C PO; +AZIT-12 PO; +CALC1TAB91 PO; +CARD180C4 PO; +DIGO0.253 PO; +DOK100TA2 PO; +FOLI1TAB11 PO; +FURO40TA2 PO; +LEVA0.636 NEB; +LEVAINH INH; +METO1TAB87 PO; +MIRA1POW3 PO; +MONT10TA10 PO; +PERCOCET PO; +SAW1CAPS2 PO; +SENN-52 PO; +SERT25TA21 PO; +SPIR-10 PO; +TREL1AER INH
--- NOTE | 2021-02-01 10:21 | REP ---
INDICATION: RT FEMUR FX. COMPARISON: Comparison radiographs January 03, 2021. TECHNIQUE: Four views of the right femur are provided. FINDINGS: An intramedullary kyra is again noted in place in the mid and distal femur. Femoral neck screw remains in place. Position of the inter trochanteric proximal femur fracture is unchanged compared to the January 03, 2021 study. IMPRESSION: Healing inter trochanteric fracture status post open reduction internal fixation. <Electronically signed by Denis Coyle > 02/01/21 1015
== END ==
LOC: M SOG 09:51
PROVIDERS: ATTEND Orthopaedic Surgery
DX: S72.141D Displaced intertrochanteric fracture of right femur, subsequent encounter for closed fracture with routine healing (principal); W18.30XD Fall on same level, unspecified, subsequent encounter; Y92.009 Unspecified place in unspecified non-institutional (private) residence as the place of occurrence of the external cause

== ENCOUNTER → 2021-03-15 | Outpatient (CLI) | payer OTHER ==
--- NOTE | 2021-03-15 15:59 | REP ---
INDICATION: RT FEMUR FX. COMPARISON: 02/01/2021 TECHNIQUE: Two views FINDINGS: The previously described proximal femoral fracture is seen with indistinct margins consistent with callus formation from healing. There is no change in the alignment or position. There is no change in the intramedullary kyra or femoral neck lag screw. IMPRESSION: Healing as described above. <Electronically signed by Jas Stevenson > 03/15/21 [id number]
== END ==
LOC: M SOG 09:01
PROVIDERS: ATTEND Orthopaedic Surgery
DX: S72.141D Displaced intertrochanteric fracture of right femur, subsequent encounter for closed fracture with routine healing (principal)

== ENCOUNTER → 2021-04-14 | Outpatient (REF) | payer MEDICARE, OTHER ==
[~2021-04-14] MED LIST changes: -MONT10TA10 PO; +MONT10TA97 PO
== END ==
LOC: M LAB REF 16:19
PROVIDERS: ATTEND Internal Medicine
DX: G60.9 Hereditary and idiopathic neuropathy, unspecified (principal)

== ENCOUNTER → 2022-12-18 | Outpatient (CLI) | payer MEDICARE, OTHER ==
[~2022-12-18] MED LIST changes: +ALBU2.5V10 INH; -ALBU83IN INH; +FEXO-117 PO; -FEXO180T58 PO
== END ==
LOC: M PLAIMG 10:19
PROVIDERS: ATTEND Internal Medicine
DX: R51.9 Headache, unspecified (principal)

== ENCOUNTER → 2024-02-21 | Outpatient (REF) | payer MEDICARE, OTHER ==
[~2024-02-21] MED LIST changes: +ALFU10TA23 PO; -ALFU10TA3 PO; -MIRA1POW3 PO; +MIRA33506 PO
== END ==
LOC: M SFHCCLAY 13:21
PROVIDERS: ATTEND Physician Assistant
DX: R97.20 Elevated prostate specific antigen [PSA] (principal)

== ENCOUNTER → 2024-09-11 | Outpatient (REF) | payer MEDICARE, OTHER ==
[~2024-09-11] MED LIST changes: -FEXO-117 PO; +FEXO-193 PO; +LEVA15HF2 INH; -LEVAINH INH
[2024-09-11 17:55] LABS: INR 1.1; PROTHROMBIN TIME 14.5 SECONDS (12.5-14.5)
== END ==
LOC: M LAB REF 17:36
PROVIDERS: ATTEND Internal Medicine
DX: I48.0 Paroxysmal atrial fibrillation (principal); Z79.01 Long term (current) use of anticoagulants

== ENCOUNTER → 2024-09-24 | Outpatient (CLI) | payer MEDICARE, OTHER | LOC: M RAD 08:01 | PROVIDERS: ATTEND Internal Medicine | DX: K74.60 Unspecified cirrhosis of liver (principal) ==

== ENCOUNTER → 2025-03-09 | Outpatient (REF) | payer MEDICARE, OTHER ==
[~2025-03-09] MED LIST changes: +ASHW300C2 PO; +ATOR1TAB21 PO; +HYDR-3364 PO; +ROPI5TAB19 PO; +TURM500C10 PO; +ZOLO100T PO
== END ==
LOC: M SFHCCLAY 13:27
PROVIDERS: ATTEND Physician Assistant
DX: R97.20 Elevated prostate specific antigen [PSA] (principal)